=== PATIENT | male | born 1950 | race Caucasian/White ===

== ENCOUNTER 2021-06-24 12:21 | Outpatient (REF) | payer BC, SELFPAY ==
[2021-06-24 18:08] LABS: Estimated Average Glucose 128 mg/dL; Hemoglobin A1c % 6.1 %
[2021-06-24 18:43] LABS: Alanine Aminotransferase 14 U/L (0-40); Albumin Level 4.3 g/dL (3.5-5.0); Alkaline Phosphatase 60 U/L (39-117); Anion Gap 16 (12-20); Aspartate Amino Transferase 20 U/L (5-37); Bilirubin Total 0.8 mg/dL (0.0-1.0); Blood Urea Nitrogen 16 mg/dL (9-16); Carbon Dioxide 24 mmol/L (22-29); Chloride 103 mmol/L (96-108); Estimated Glomerular Filt Rate > 60; Glucose Random 92 mg/dL (60-115); Potassium 3.4 mmol/L (3.3-5.1); Sodium 140 mmol/L (135-145); Total Protein 6.6 g/dL (6.5-8.0)
[2021-06-24 19:04] LABS: Thyroid Stimulating Hormone 2.94 uIU/mL (0.32-4.0)
== END 2021-06-24 12:22 | disposition home or self-care (01) ==
LOC: HO.MANLDS 12:21
PROVIDERS: PCP Internal Medicine; Visit Provider Internal Medicine
DX: E03.9 Hypothyroidism, unspecified (principal); I10 Essential (primary) hypertension
CPT/HCPCS: 36415; 80053; 83036; 84443

== ENCOUNTER 2021-10-17 11:58 | Outpatient (REF) | payer BC, SELFPAY ==
[2021-10-17 14:29] LABS: Estimated Average Glucose 137 mg/dL; Hemoglobin A1c % 6.4 %
== END 2021-10-17 11:59 | disposition home or self-care (01) ==
LOC: HO.MANLDS 11:58
PROVIDERS: PCP Internal Medicine; Visit Provider Internal Medicine
DX: E11.9 Type 2 diabetes mellitus without complications (principal)
CPT/HCPCS: 36415; 83036

== ENCOUNTER 2022-01-30 13:50 | Outpatient (REF) | payer SELFPAY ==
[2022-01-30 18:21] LABS: Estimated Average Glucose 137 mg/dL; Hemoglobin A1c % 6.4 %
== END 2022-01-30 13:51 | disposition home or self-care (01) ==
LOC: HO.MANLDS 13:50
PROVIDERS: PCP Internal Medicine; Visit Provider Internal Medicine
DX: E11.9 Type 2 diabetes mellitus without complications (principal)
CPT/HCPCS: 36415; 83036

== ENCOUNTER 2022-05-29 10:46 | Outpatient (REF) | payer OTHER, SELFPAY ==
[2022-05-29 13:24] LABS: MANUAL DIFF FLAG NO
[2022-05-29 13:33] LABS: Basophils Absolute Auto 0.1 X10*3/uL (0.0-0.2); Basophils Percent Auto 1.2 % (0-2); Eosinophils Absolute Auto 0.3 X10*3/uL (0.0-0.4); Eosinophils Percent Auto 5.1 % (0-4); Hematocrit 44.3 % (42.0-52.0); Hemoglobin 15.3 g/dl (14.0-18.0); Imm Gran Abs Auto 0.01 X10*3/uL (0.00-0.03); Imm Gran Pct Auto 0.2 % (0.0-0.4); Lymphocytes Absolute Auto 1.5 X10*3/uL (1.2-4.9); Lymphocytes Percent Auto 25.5 % (20-40); Mean Corpuscular HGB Conc 34.5 g/dl (31.0-36.0); Mean Corpuscular Hemoglobin 29.7 pg (27.0-33.0); Mean Corpuscular Volume 85.9 fL (80.0-98.0); Mean Platelet Volume 9.3 fL (9.4-12.4); Monocytes Absolute Auto 0.5 X10*3/uL (0.1-1.2); Monocytes Percent Auto 8.1 % (2-11); Neutrophils Absolute Auto 3.6 x10*3/uL (2.0-8.3); Neutrophils Percent Auto 59.9 % (45-73); Platelet Count 239 X10*3/uL (160-400); Red Blood Count 5.16 X10*6/uL (4.60-5.80); Red Cell Distribution Width 11.9 % (11.0-16.0); White Blood Count 5.9 X10*3/uL (4.8-10.8)
[2022-05-29 13:40] LABS: Estimated Average Glucose 143 mg/dL; Hemoglobin A1c % 6.6 %
[2022-05-29 14:01] LABS: Alanine Aminotransferase 15 U/L (0-40); Alkaline Phosphatase 56 U/L (39-117); Anion Gap 11 (12-20); Aspartate Amino Transferase 18 U/L (5-37); Bilirubin Total 1.1 mg/dL (0.0-1.0); Blood Urea Nitrogen 15 mg/dL (9-16); Calcium 8.6 mg/dL (8.4-10.2); Carbon Dioxide 27 mmol/L (22-29); Chloride 103 mmol/L (96-108); Cholesterol 160 mg/dL; Estimated Glomerular Filt Rate > 60; Glucose Random 126 mg/dL (60-115); HDL Cholesterol 32 mg/dL; LDL Cholesterol Calculated 109 mg/dl; Potassium 3.4 mmol/L (3.3-5.1); Sodium 138 mmol/L (135-145); Triglycerides 96 mg/dL
[2022-05-29 14:23] LABS: Thyroid Stimulating Hormone 2.95 uIU/mL (0.32-4.0); Vitamin D 25-OH Total 21.4 ng/mL (>30)
[2022-05-30 08:05] LABS: ~HepC Num1 0.09 S/CO (0.00-0.79); ~Hepatitis C Antibody Nonreactive (Nonreactive)
== END 2022-05-29 10:47 | disposition home or self-care (01) ==
LOC: HO.MANLDS 10:46
PROVIDERS: Visit Provider Internal Medicine
DX: Z12.5 Encounter for screening for malignant neoplasm of prostate (principal); Z11.59 Encounter for screening for other viral diseases; E11.9 Type 2 diabetes mellitus without complications; I10 Essential (primary) hypertension
CPT/HCPCS: 36415; 80053; 80061; 82306; 83036; 84153; 84443; 85025; 86803

== ENCOUNTER 2022-10-09 10:39 | Outpatient (REF) | payer OTHER, SELFPAY ==
[2022-10-09 14:21] LABS: Estimated Average Glucose 154 mg/dL
== END 2022-10-09 10:40 | disposition home or self-care (01) ==
LOC: HO.MANLDS 10:39
PROVIDERS: Visit Provider Internal Medicine
DX: E11.9 Type 2 diabetes mellitus without complications (principal)
CPT/HCPCS: 36415; 83036

== ENCOUNTER 2023-02-13 11:16 | Outpatient (REF) | payer OTHER, SELFPAY ==
[2023-02-13 13:19] LABS: Estimated Average Glucose 151 mg/dL; Hemoglobin A1c % 6.9 %
== END 2023-02-13 11:17 | disposition home or self-care (01) ==
LOC: HO.MANLDS 11:16
PROVIDERS: Visit Provider Internal Medicine
DX: E11.9 Type 2 diabetes mellitus without complications (principal)
CPT/HCPCS: 36415; 83036

== ENCOUNTER 2023-06-25 10:52 | Outpatient (REF) | payer OTHER, SELFPAY ==
[2023-06-25 13:49] LABS: MANUAL DIFF FLAG NO
[2023-06-25 14:03] LABS: Basophils Absolute Auto 0.1 X10*3/uL (0.0-0.2); Basophils Percent Auto 1.6 % (0-2); Eosinophils Absolute Auto 0.1 X10*3/uL (0.0-0.4); Eosinophils Percent Auto 1.8 % (0-4); Hematocrit 49.2 % (42.0-52.0); Hemoglobin 16.7 g/dl (14.0-18.0); Imm Gran Abs Auto 0.02 X10*3/uL (0.00-0.03); Imm Gran Pct Auto 0.3 % (0.0-0.4); Lymphocytes Absolute Auto 1.7 X10*3/uL (1.2-4.9); Lymphocytes Percent Auto 27.6 % (20-40); Mean Corpuscular HGB Conc 33.9 g/dl (31.0-36.0); Mean Corpuscular Hemoglobin 29.9 pg (27.0-33.0); Mean Corpuscular Volume 88.2 fL (80.0-98.0); Mean Platelet Volume 9.5 fL (9.4-12.4); Monocytes Absolute Auto 0.5 X10*3/uL (0.1-1.2); Monocytes Percent Auto 8.1 % (2-11); Neutrophils Absolute Auto 3.8 x10*3/uL (2.0-8.3); Neutrophils Percent Auto 60.6 % (45-73); Platelet Count 265 X10*3/uL (160-400); Red Blood Count 5.58 X10*6/uL (4.60-5.80); Red Cell Distribution Width 11.9 % (11.0-16.0); White Blood Count 6.3 X10*3/uL (4.8-10.8)
[2023-06-25 14:51] LABS: Alanine Aminotransferase 16 U/L (0-40); Albumin Level 3.9 g/dL (3.5-5.0); Alkaline Phosphatase 54 U/L (39-117); Anion Gap 11 (12-20); Aspartate Amino Transferase 18 U/L (5-37); Blood Urea Nitrogen 13 mg/dL (9-16); Calcium 9.2 mg/dL (8.4-10.2); Carbon Dioxide 28 mmol/L (22-29); Chloride 104 mmol/L (96-108); Cholesterol 150 mg/dL; Estimated Glomerular Filt Rate > 60; Glucose Random 137 mg/dL (60-115); HDL Cholesterol 31 mg/dL; LDL Cholesterol Calculated 101 mg/dl; Potassium 3.7 mmol/L (3.3-5.1); Sodium 139 mmol/L (135-145); Total Protein 6.5 g/dL (6.5-8.0); Triglycerides 93 mg/dL
[2023-06-25 15:12] LABS: Thyroid Stimulating Hormone 3.61 uIU/mL (0.32-4.0)
[2023-06-25 15:16] LABS: Estimated Average Glucose 154 mg/dL
[2023-06-25 15:19] LABS: Prostate Specific Antigen 1.39 ng/mL (<0.05-4.0)
== END 2023-06-25 10:53 | disposition home or self-care (01) ==
LOC: HO.MANLDS 10:52
PROVIDERS: Visit Provider Internal Medicine
DX: Z12.5 Encounter for screening for malignant neoplasm of prostate (principal); I10 Essential (primary) hypertension; E03.9 Hypothyroidism, unspecified; E11.9 Type 2 diabetes mellitus without complications
CPT/HCPCS: 36415; 80053; 80061; 83036; 84153; 84443; 85025

== ENCOUNTER 2023-10-30 09:47 | Outpatient (REF) | payer OTHER, SELFPAY ==
[2023-10-30 14:08] LABS: Estimated Average Glucose 160 mg/dL; Hemoglobin A1c % 7.2 % (<6.0)
== END 2023-10-30 09:48 | disposition home or self-care (01) ==
LOC: HO.MANLDS 09:47
PROVIDERS: Visit Provider Internal Medicine
DX: E11.9 Type 2 diabetes mellitus without complications (principal)
CPT/HCPCS: 36415; 83036

== ENCOUNTER 2024-02-12 10:40 | Outpatient (REF) | payer OTHER, SELFPAY ==
[2024-02-12 13:31] LABS: MANUAL DIFF FLAG NO
[2024-02-12 13:40] LABS: Basophils Absolute Auto 0.1 X10*3/uL (0.0-0.2); Eosinophils Absolute Auto 0.1 X10*3/uL (0.0-0.4); Hematocrit 42.3 % (42.0-52.0); Hemoglobin 14.9 g/dl (14.0-18.0); Imm Gran Abs Auto 0.02 X10*3/uL (0.00-0.03); Imm Gran Pct Auto 0.4 % (0.0-0.4); Lymphocytes Absolute Auto 1.5 X10*3/uL (1.2-4.9); Lymphocytes Percent Auto 29.3 % (20-40); Mean Corpuscular HGB Conc 35.2 g/dl (31.0-36.0); Mean Corpuscular Hemoglobin 29.9 pg (27.0-33.0); Mean Corpuscular Volume 84.8 fL (80.0-98.0); Mean Platelet Volume 9.4 fL (9.4-12.4); Monocytes Absolute Auto 0.4 X10*3/uL (0.1-1.2); Monocytes Percent Auto 8.5 % (2-11); Neutrophils Absolute Auto 3.1 x10*3/uL (2.0-8.3); Neutrophils Percent Auto 59.8 % (45-73); Platelet Count 252 X10*3/uL (160-400); Red Blood Count 4.99 X10*6/uL (4.60-5.80); Red Cell Distribution Width 12.3 % (11.0-16.0); White Blood Count 5.2 X10*3/uL (4.8-10.8)
[2024-02-12 14:11] LABS: Alanine Aminotransferase 29 U/L (0-40); Albumin Level 3.8 g/dL (3.5-5.0); Alkaline Phosphatase 51 U/L (39-117); Anion Gap 11 (12-20); Aspartate Amino Transferase 26 U/L (5-37); Bilirubin Total 0.6 mg/dL (0.0-1.0); Blood Urea Nitrogen 16 mg/dL (9-16); Calcium 8.9 mg/dL (8.4-10.2); Carbon Dioxide 31 mmol/L (22-29); Chloride 102 mmol/L (96-108); Cholesterol 108 mg/dL (<200); Estimated Glomerular Filt Rate > 60; Glucose Random 121 mg/dL (60-115); HDL Cholesterol 29 mg/dL (>40); LDL Cholesterol Calculated 64 mg/dL (<100); Potassium 3.3 mmol/L (3.3-5.1); Sodium 141 mmol/L (135-145); Triglycerides 76 mg/dL (<150)
[2024-02-12 14:27] LABS: Prostate Specific Antigen 1.86 ng/mL (<0.05-4.0)
[2024-02-12 14:28] LABS: Free T4 (Free Thyroxine) 1.21 ng/dL (0.71-1.85); Thyroid Stimulating Hormone 3.06 uIU/mL (0.32-4.0); Vitamin D 25-OH Total 20.6 ng/mL (>30)
== END 2024-02-12 10:41 | disposition home or self-care (01) ==
LOC: HO.MANLDS 10:40
PROVIDERS: Visit Provider Internal Medicine
DX: Z12.5 Encounter for screening for malignant neoplasm of prostate (principal); I10 Essential (primary) hypertension; E03.9 Hypothyroidism, unspecified; E55.9 Vitamin D deficiency, unspecified
CPT/HCPCS: 36415; 80053; 80061; 82306; 84153; 84439; 84443; 85025

== ENCOUNTER 2024-03-07 15:27 | Outpatient (REF) | payer OTHER, SELFPAY ==
[2024-03-07 17:57] LABS: Estimated Average Glucose 137 mg/dL; Hemoglobin A1c % 6.4 % (<6.0)
== END 2024-03-07 15:28 | disposition home or self-care (01) ==
LOC: HO.MANLDS 15:27
PROVIDERS: Visit Provider Internal Medicine
DX: E11.9 Type 2 diabetes mellitus without complications (principal)
CPT/HCPCS: 36415; 83036

== ENCOUNTER 2024-09-08 09:44 | Outpatient (REF) | payer OTHER, SELFPAY ==
[2024-09-08 13:40] LABS: Estimated Average Glucose 154 mg/dL; Hemoglobin A1C 211.3082 umol/L; Total Hemoglobin (HGBA1C) 3975.6024 umol/L
== END 2024-09-08 09:45 | disposition home or self-care (01) ==
LOC: HO.MANLDS 09:44
PROVIDERS: Visit Provider Internal Medicine
DX: E11.9 Type 2 diabetes mellitus without complications (principal)
CPT/HCPCS: 36415; 83036

== ENCOUNTER 2025-08-07 09:59 | Outpatient (REF) | payer OTHER, SELFPAY ==
--- OUTSIDE RECORDS SUMMARY | 2025-08-07 10:33 | XMS_ITS | Encounter Summary ---
Author Organization [facility] Address [address] [place] [address] Phone Care Team Providers Care Protocol Manager Name Role Phone Taj Andrews DO Primary Care Provider [phone] Encounter Details Date Type Department Care Team (Late st Contact Info) Description 10/09/2022 Transcribe Orders Virtual Department [address] [place] [address] Taj Andrews DO [address] [facility] [place] [address] [email or web address] Left arm pain (Primary Dx) Social History Tobacco Use Types Packs/Day Years Used Date Smoking Tobacco: Never Assessed Sex and Gender Information Value Date Recorded Sex Assigned at Not on file Legal Sex Male 11:14 AM EST Gender Identity Not on file Sexual Orientation Not on file documented as of this encounter Plan of Treatment Not on file documented as of this encounter Results * XR Humerus (Left) (10/11/2022 3:16 PM EST) Anatomical Region Laterality Modality Arm Left Computed Radiogr aphy 10/13/2022 4:14 PM EST Impressions 10/14/2022 5:28 PM EST Degenerative changes. No acute osseous abnormality. Narrative 10/14/2022 5:28 PM EST XR SHOULDER 2 OR MORE VIEWS (LEFT), XR HUMERUS (LEFT) COMPARISON: FINDINGS: No fracture. Osseous alignment is normal. Mild degenerative changes of the acromioclavicular and glenohumeral joints. Common flexor and common extensor enthesopathy in the distal humerus. Procedure Note Crispin Pendleton MD - 10/14/2022 XR SHOULDER 2 OR MORE VIEWS (LEFT), XR HUMERUS (LEFT) COMPARISON: FINDINGS: No fracture. Osseous alignment is normal. Mild degenerative changes of theacromioclavicular and glenohumeral joints. Common flexor and commonextensor enthesopathy in the distal humerus. IMPRESSION: Degenerative changes. No acute osseous abnormality. us Taj A Bigda DO IMG XR UPPER EXTREMITY Final Res ult * XR SHOULDER 2 VIEWS (LEFT) (10/11/2022 3:15 PM EST) Anatomical Region Laterality Modality Shoulder Left Computed Radiogr aphy 10/13/2022 4:14 PM EST Impressions 10/14/2022 5:28 PM EST Degenerative changes. No acute osseous abnormality. Narrative 10/14/2022 5:28 PM EST XR SHOULDER 2 OR MORE VIEWS (LEFT), XR HUMERUS (LEFT) COMPARISON: FINDINGS: No fracture. Osseous alignment is normal. Mild degenerative changes of the acromioclavicular and glenohumeral joints. Common flexor and common extensor enthesopathy in the distal humerus. Procedure Note Crispin Pendleton MD - 10/14/2022 XR SHOULDER 2 OR MORE VIEWS (LEFT), XR HUMERUS (LEFT) COMPARISON: FINDINGS: No fracture. Osseous alignment is normal. Mild degenerative changes of theacromioclavicular and glenohumeral joints. Common flexor and commonextensor enthesopathy in the distal humerus. IMPRESSION: Degenerative changes. No acute osseous abnormality. us Taj A Bigda DO IMG XR UPPER EXTREMITY Final Res ult documented in this encounter Visit Diagnoses Diagnosis Left arm pain- Primary Pain in soft tissues of limb Left arm pain Pain in soft tissues of limb Left arm pain Pain in soft tissues of limb documented in this encounter Care Teams Protocol Manager Relationship Specialty Start Date End Date BobTaj orr [email or web address] PCP - General Internal Medicine 10/11/22 documented as of this encounter Additional Source Comments The information contained in this document represents components of the legal health record. It is not the complete legal health record.[facility]
--- OUTSIDE RECORDS SUMMARY | 2025-08-07 10:33 | XMS_ITS | Clinical Summary ---
Author Organization [facility] Address [address] [place], [place] [id number] Phone Care Team Providers Care It Security Administrator Name Role Phone Taj Andrews DO Primary Care Provider [phone] Allergies Active Allergy Reactions Criticality Noted Date Comments Diatrizoate Meglumine Rash Low 12/18/2019 Penicillins Rash Low 10/14/2013 Medications levothyroxine (SYNTHROID, LEVOTHROID) 50 MCG tablet Take 1 tablet by mouth daily. 02/08/2022 Active losartan-hydroCH LOROthiazide (HYZAAR) 100-25 mg per tablet Take 1 tablet by mouth daily. 12/01/2022 Active tadalafiL (CIALIS, ADCIRCA) 20 MG tablet Take 1 tablet by mouth every morning. 04/09/2023 Active Active Problems Problem Noted Date Diagnosed Date Controlled type 2 diabetes m ellitus without complication, without long-term current use of insulin 10/05/2020 05/18/2023 Hypertension goal BP (blood pressure) < 140/90 1 12/14/2012 05/18/2023 Hypothyroidism 10/14/2013 05/18/2023 Immunizations Immunization Administration Dates Next Due INFLUENZA, SPLIT VIRUS, TRIVALENT PF 08/13/2012, 10/31/2011,10/09/2007 INFLUENZA, SPLIT VIRUS, TRIV ALENT W/ PRESERVATIVE IM 10/14/2013 Influenza Quadrivalent Preservative Free IM 06/2016 Influenza Trivalent Adjuvant ed Preservative free IM 09/08/2019,10/18/2018,11/13/2017 Pneumococcal conjugate PCV13 06/19/2018 Pneumococcal polysaccharide PPSV23 12/18/2019 Tdap 12/18/2019,07/19/2010 Social History Tobacco Use Types Packs/Day Years Used Date Smoking Tobacco: Never Smokeless Tobacco: Never Tobacco Cessation:Counseling Given: Not Answered Alcohol Use Standard Drinks/Week Comments Never 0 (1 standard drink = 0.6 oz pur e alcohol) Education Answer Date Recorded Are you interested in more education? Not on tammy e 03/17/2023 Are you concerned about learning? Not on file 03/17/2023 No 03/17/2023 No 03/17/2023 Digital Access Answer Date Recorded No 04/17/2023 No 04/17/2023 Reliable internet access at home? Not on file 04/17/2023 Device with a working camera? Not on file Sex and Gender Information Value Date Recorded Sex Assigned at Not on file Legal Sex Male 11:14 AM EST Gender Identity Not on file Sexual Orientation Not on file Last Filed Vital Signs Vital Sign Reading Time Taken Comments Blood Pressure 111/77 06/23/2024 9:53 AM EDT Pulse 70 06/23/2024 9:53 AM EDT Temperature 36.7 C (98.1 F) 06/23/2024 9:53 AM EDT Respiratory Rate 16 06/23/2024 9:53 AM EDT Oxygen Saturation 98% 06/23/2024 9:53 AM EDT Inhaled Oxygen Concentration - - Weight 111.1 kg (245 lb) 06/23/2024 9:53 AM EDT Height 180.3 cm (5' 11 ) 06/23/2024 9:53 AM EDT Body Mass Index 34.17 06/23/2024 9:53 AM EDT Plan of Treatment Health Maintenance Due Date Last Done Comments CREATININE LEVEL 1952 HEMOGLOBIN A1C 1952 POTASSIUM LEVEL 1952 DEPRESSION SCREENING 1964 COLOGUARD 1997 COLONOSCOPY 1997 FIT TEST 1997 SIGMOIDOSCOPY 1997 VIRTUAL COLONOSCOPY 1997 ZOSTER VACCINES (1 of 2) 2002 TSH LEVEL 10/04/2021 10/04/2020, 11/21, 11/07/2018 LIPID PANEL 02/23/2022 02/23/2021 COLORECTAL CANCER SCREENING 03/07/2022 FOBT 03/07/2022 03/07/2021, 12/25/2019 DIABETIC EYE EXAM 05/18/2023 BLOOD PRESSURE 12/24/2024 06/23/2024 INFLUENZA VACCINE (#1) 2025 9, 10/18/2018, 11/13/2017, Additional history exists COVID-19 VACCINE ( - 2023- season) 2025 RSV VACCINE (1 - 1-dose 75+ series) 2027 Adult Td,Tdap Booster 12/18/2029 12/18/2019, 010 HEPATITIS C SCREENING Completed 12/18/2019 PNEUMOCOCCAL VACCINES (50+ years) Completed 12/18/2019, 06/19/2018 SMOKING STATUS SCREENING (Once After 26 Yrs) Completed 06/23/2024 HEPATITIS A VACCINES Aged Out No long er eligible based on patient's age to complete this topic HIB VACCINES Aged Out No longer eligi ble based on patient's age to complete this topic MENINGOCOCCAL VACCINES (ACWY) Aged Out No longer eligible based on patient's age to complete this topic MENINGOCOCCAL VACCINES (B) Aged Out N o longer eligible based on patient's age to complete this topic Medical Devices Not on file Insurance POS Member Subscriber Plan / Payer (Ef fective 2023-Present) Name:Gaurav Silverio Relation to Subscriber:Spouse Name:CANDACE SILVERIO Date of :1952 (Home) [address]: [address] [place] [address] Payer ID:[id number] (NAIC) Type:POS Address: [facility] [id number] [place] [id number] [employer] POS POS POS POS POS Care Teams It Security Administrator Relationship Specialty Start Date End Date Taj Andrews DO [email or web address] PCP - General Internal Medicine 10/11/22 Additional Source Comments The information contained in this document represents components of the legal health record. It is not the complete legal health record.[facility]
--- OUTSIDE RECORDS SUMMARY | 2025-08-07 10:33 | XMS_ITS | Encounter Summary ---
Author Organization [facility] Address [address] [facility] [address] [place] [address] Phone Care Team Providers Care Contact Lens Manufacturer Name Role Phone Taj Andrews DO Primary Care Provider [phone] Encounter Details Date Type Department Care Team (Late st Contact Info) Description 09/10/2024 Transcribe Orders Virtual Department [address] [place] [address] Taj Andrews DO [address] [facility] [place] [address] [place] [address] [email or web address] Muscle weakness (generalized) (Primary Dx) Social History Tobacco Use Types Packs/Day Years Used Date Smoking Tobacco: Never Smokeless Tobacco: Never Alcohol Use Standard Drinks/Week Comments Never 0 [...] as of this encounter Results * XR LUMBOSACRAL SPINE 2-3 VIEWS (10/17/2024 10:24 AM EST) Anatomical Region Laterality Modality L-spine Computed Radiogr aphy 10/17/2024 11:1 5 AM EST Impressions 10/17/2024 11:17 AM EST No evidence of acute fracture or malalignment. Degenerative change as described above. Narrative 10/17/2024 11:17 AM EST XR LUMBOSACRAL SPINE 2-3 VIEWS 10/17/2024 10:07 AM Referring clinician's provided indication for this examination in Epic: Outside Radiology Order; Muscle weakness (generalized) COMPARISON: None FINDINGS: There is no evidence of acute fracture, subluxation, or dislocation. Vertebral body height and sagittal alignment are preserved. There is multilevel anterior degenerative endplate marginal osteophytosis, most notable at L5-S1. There is mild loss of disc space height at L4-5 and L5-S1. There is degenerative change of the lower lumbar facet joints. Procedure Note Fatoumata Rangel MD - 10/17/2024 XR LUMBOSACRAL SPINE 2-3 VIEWS 10/17/2024 10:07 AM Referring clinician's provided indication for this examination in Epic:Outside Radiology Order; Muscle weakness (generalized) COMPARISON: None FINDINGS: There is no evidence of acute fracture, subluxation, or dislocation.Vertebral body height and sagittal alignment are preserved. There ismultilevel anterior degenerative endplate marginal osteophytosis, mostnotable at L5-S1. There is mild loss of disc space height at L4-5 andL5-S1. There is degenerative change of the lower lumbar facet joints. IMPRESSION: No evidence of acute fracture or malalignment. Degenerative change asdescribed above. us Taj Andrews DO IMG XR SPINE Final Result documented in this encounter Visit Diagnoses Diagnosis Muscle weakness (generalized)- Primary Muscle weakness (generalized) documented in this encounter Care Teams Contact Lens Manufacturer Relationship Specialty Start Date End Date Taj Andrews DO PCP - General Internal Medicine 10/11/22 documented as of this encounter Additional Source Comments The information contained in this document represents components of the legal health record. It is not the complete legal health record.[facility]
--- OUTSIDE RECORDS SUMMARY | 2025-08-07 10:33 | XMS_ITS | Encounter Summary ---
Author Organization [facility] Address [address] [facility] [address] [place] [address] Phone Care Team Providers Care Food Analyst Name Role Phone Taj Andrews DO Primary Care Provider [phone] Encounter Details Date Type Department Care Team (Late st Contact Info) Description 11/25/2024 Transcribe Orders Virtual Department [address] [place] [address] Taj Andrews DO [address] [facility] [place] [address] [place] [address] Right hip pain (Primary Dx); Left hip pain Social History Tobacco Use Types Packs/Day Years [...] as of this encounter Results * XR HIPS 2+ VW EA BILAT PLUS PELVIS (12/22/2024 10:35 AM EST) Anatomical Region Laterality Modality Hip, Pelvis Computed Radiogr aphy 12/22/2024 12:4 2 PM EST Impressions 12/22/2024 12:44 PM EST Mild degenerative changes at the hips. Narrative 12/22/2024 12:44 PM EST XR HIPS 2+ VW EA BILAT PLUS PELVIS Referring clinician's provided indication for this examination in Epic: Outside Radiology Order; Other Indication (Please use free text); Pain; BILATERAL HIP JOINT PAIN COMPARISON: None FINDINGS: Pelvis: Lower lumbar spine degenerative changes. Mild degenerative changes at both sacroiliac joints and pubic symphysis. No displaced fracture. Left Hip: No displaced fracture. Mild degenerative changes. Right Hip: No displaced fracture. Mild degenerative changes. Procedure Note Anthony Posey MD - 12/22/2024 XR HIPS 2+ VW EA BILAT PLUS PELVIS Referring clinician's provided indication for this examination in Epic:Outside Radiology Order; Other Indication (Please use free text); Pain;BILATERAL HIP JOINT PAIN COMPARISON: None FINDINGS: Pelvis: Lower lumbar spine degenerative changes. Mild degenerative changesat both sacroiliac joints and pubic symphysis. No displaced fracture. Left Hip: No displaced fracture. Mild degenerative changes. Right Hip: No displaced fracture. Mild degenerative changes. IMPRESSION: Mild degenerative changes at the hips. Taj Andrews DO IMG XR PELVIS Final Result documented in this encounter Visit Diagnoses Diagnosis Right hip pain- Primary Pain in joint, pelvic region and thigh Left hip pain Pain in joint, pelvic region and thigh Right hip pain Pain in joint, pelvic region and thigh Left hip pain Pain in joint, pelvic region and thigh documented in this encounter Care Teams Food Analyst Relationship Specialty Start Date End Date Taj Andrews DO PCP - General Internal Medicine 10/11/22 documented as of this encounter Additional Source Comments The information contained in this document represents components of the legal health record. It is not the complete legal health record.[facility]
[2025-08-07 13:14] LABS: MANUAL DIFF FLAG NO
[2025-08-07 13:46] LABS: Hematocrit 45.4 % (42.0-52.0); Hemoglobin 16.3 g/dl (14.0-18.0); Imm Gran Abs Auto 0.03 X10*3/uL (0.00-0.03); Imm Gran Pct Auto 0.4 % (0.0-0.4); Lymphocytes Absolute Auto 1.9 X10*3/uL (1.2-4.9); Mean Corpuscular HGB Conc 35.9 g/dl (31.0-36.0); Mean Corpuscular Hemoglobin 30.4 pg (27.0-33.0); Mean Corpuscular Volume 84.5 fL (80.0-98.0); NRBC Abs Auto 0.000 X10*3/uL (0.0-0.012); NRBC Pct Auto 0.0 /100WBC (0.0-0.2); Platelet Count 249 X10*3/uL (160-400); Red Blood Count 5.37 X10*6/uL (4.60-5.80); White Blood Count 7.2 X10*3/uL (4.8-10.8)
[2025-08-07 13:54] LABS: Hemoglobin A1C 279.1516 umol/L; Total Hemoglobin (HGBA1C) 4260.5149 umol/L
[2025-08-07 14:04] LABS: Alanine Aminotransferase 17 U/L (0-40); Albumin Level 4.2 g/dL (3.5-5.0); Alkaline Phosphatase 54 U/L (39-117); Anion Gap 9 (12-20); Aspartate Amino Transferase 26 U/L (5-37); Blood Urea Nitrogen 12 mg/dL (9-16); Calcium 8.9 mg/dL (8.4-10.2); Carbon Dioxide 28 mmol/L (22-29); Chloride 105 mmol/L (96-108); Estimated Glomerular Filt Rate > 60; Potassium 3.3 mmol/L (3.3-5.1); Sodium 139 mmol/L (135-145); Total Protein 6.3 g/dL (6.5-8.0)
[2025-08-07 14:15] LABS: Prostate Specific Antigen 1.86 ng/mL (<0.05-4.0)
[2025-08-07 14:35] LABS: Free T4 (Free Thyroxine) 1.11 ng/dL (0.71-1.85); Thyroid Stimulating Hormone 3.81 uIU/mL (0.32-4.0)
== END 2025-08-07 10:00 | disposition home or self-care (01) ==
LOC: HO.MANLDS 09:59
PROVIDERS: Visit Provider Internal Medicine
DX: Z12.5 Encounter for screening for malignant neoplasm of prostate (principal); E11.9 Type 2 diabetes mellitus without complications; E03.9 Hypothyroidism, unspecified
CPT/HCPCS: 36415; 80053; 83036; 84153; 84439; 84443; 85025

== ENCOUNTER 2025-11-06 09:20 | Outpatient (REF) | payer OTHER, SELFPAY ==
--- OUTSIDE RECORDS SUMMARY | 2004-03-08 03:30 | XMS_ITS | Continuity of Care Document ---
Author Organization [facility] Address [address] [address] [place] [address] Phone Care Team Providers Care Svp Group Director Name Role Phone Unavailable Unavailable Unavailable Advance Directives Directive Yes / No Effective Date File Name No Information Encounters Encounter Description Practice Location Reason(s) For Visit Diagnoses Date Provider Providers Copied on Encounter [facility], [address] [address], [place], [place], [id number], [place] tel:[phone] [facility] No Information 2 0-200 4 No Information Referring Provider: Tommy Zhang MD, [address], [address], [place], [address]. tel:[phone] Family History Family Member Type Diagnosis Age At Onset No Information Payers Payer name Insurance type Covered democrat ID Authoriza tion(s) [facility] CI [id number] Social History Type Description Quantity Date Captured Comments Sex Male Smoking Status No Information Chief Complaint And Reason For Visit No Information Reason For Referral Reason For Referral No Information History Of Present Illness Encounter Date Complaint History Of Prese nt Illness No Information Functional Status Date Functional Assessmen t No Information Instructions Date Instruction Additional Infor mation No Information Assessments Type Assessment Date No Information Patient Care Teams Name Effective Dates (start - stop) Status Members No Information
--- OUTSIDE RECORDS SUMMARY | 2025-11-06 09:58 | XMS_ITS | Encounter Summary ---
Author Organization [facility] Address [address] [place] [address] Phone Care Team Providers Care System Developer Associate Manager Name Role Phone Taj Andrews DO Primary Care Provider [phone] Encounter Details Date Type Department Care Team (Late st Contact Info) Description 10/09/2022 Transcribe Orders Virtual Department [address] [place] [address] Taj Andrews DO [address] [place] [address] [email or web address] Left arm pain (Primary Dx) Social History [...] limb documented in this encounter Care Teams System Developer Associate Manager Relationship Specialty Start Date End Date BobTaj orr [email or web address] PCP - General Internal Medicine 10/11/22 documented as of this encounter Additional Source Comments The information contained in this document represents components of the legal health record. It is not the complete legal health record.[facility]
--- OUTSIDE RECORDS SUMMARY | 2025-11-06 09:59 | XMS_ITS | Continuity of Care Document ---
Author Organization [facility], [facility] Address [address] [facility] [address] [place] [address] Assessment No assessment recorded. Plan of Treatment Reminders Order Date Submit Date Provider Last Modified By Organization Details Last Modified Time Details Appointments MEDICARE ANNUAL [facility] 2024 09:45A M DR HUGHES Not available Not available Not available Lab None recorded. Referral None recorded. Procedures None recorded. Surgeries None recorded. Imaging None recorded. Medication Orders None recorded. Patient TargetsNo targets recorded. Patient InstructionsNo instructions recorded. Reason for Referral None Reported. Problems Name Problem SNOMED Code Status Onset Date Resolution Date Notes Provider Name and Address Organization Details Recorded Time Type 2 diabetes mellitus 33006864 Active 2020 Not Available [facility] 3 08:41:15 Hypertens marta disorder 51641580 Active 2020 Not Available [facility] 3 08:41:14 Hypothyro idism 13477469 Active 2020 Not Available [facility] 3 08:41:14 Benign prostatic hyperplas ia 337835431 Active 2020 Not Available [facility] 3 08:41:14 Actinic keratosis 120780512 Active 2020 Not Available [facility] 3 08:41:14 Primary erectile dysfuncti on 169054453 Active 2021 Not Available [facility] 3 08:41:15 Vitamin D deficienc y 39263138 Active 2021 Not Available [facility] 3 08:41:14 Pain in left arm 332058549 Active 2021 Not Available [facility] 3 08:41:14 Tympanosc lerosis involving tympanic membrane only 01796170 Active 2022 Not Available [facility] 3 08:41:14 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 Active 2023 Taj Rojaskirby, DO [address] [place] [address], [phone], [facility] 4 14:55:16 Weakness of bilateral lower limb Active 2023 Taj Hughes, DO [address] [place] [address], [phone], [facility] 4 14:55:34 Pain of bilateral hip joints 479820074940 99499 Active 2024 Taj Hughes, DO [address] [place] [address], [phone], [facility] 5 23:40:25 Nocturia due to benign prostatic hypertrop hy 074524543456 1 Active 2024 Taj Hughes, DO [address] [place] [address], [phone], [facility] 5 09:45:55 Problem Notes None recorded. Medical Equipment None Reported. Allergies Allergen ID Allergen Name Allergen Category Reaction Reaction Severity Criticality Documentation Date Start Date Code Code System Note Provider Name and Address Organization Details Recorded Time 15576 diatrizoa te meglumine medicatio n rash Not available low 11/06/20252019 3320 RxNorm Not Available [facility] [employer] - prod 5 04:21:58 18877 Product containin g penicilli n (product) medicatio n rash Not available low 11/06/20252012 52480 8001 SNOMED Not Available [facility] [employer] - prod 5 04:21:58 80828 Penicilli n Not available Not available Not available Not available 11/06/2025 42160 RxNorm Penic illin Not Available [employer] - prod 5 04:22:11 4658 penicilli n V Not available rash Not available Not available 06/24/2021 7984 RxNorm Birgit shrestha [facility] 11:23:53 Medications Name Sig Start Date Stop Date Status Note LastModified by Organization Details LastModified Time losartan 50 mg tablet Take 1 tablet every day by oral route for 90 days. 10/17 completed Not Available Not Available Not Available ketorolac 0.5 % eye drops PLACE 1 DROP IN LEFT EYE THREE TIMES A DAY FOR THREE WEEKS FOLLOWING CATARACT SURGERY active Not Available Not Available No t Available losartan 100 mg-hydrochl orothiazide 25 mg tablet TAKE 1 TABLET BY MOUTH EVERY DAY active Not Available Not Available No t Available ofloxacin 0.3 % ear drops INSTILL 5 DROPS INTO EACH EAR TWICE A DAY FOR 10 DAYS 09/10 completed Not Available Not Available Not Available tamsulosin 0.4 mg capsule TAKE 1 CAPSULE BY MOUTH EVERY DAY active Not Available Not Available No t Available levothyroxi ne 50 mcg tablet TAKE 1 TABLET BY MOUTH EVERY DAY active Not Available Not Available No t Available hydrochloro thiazide 25 mg tablet TAKE 1 TABLET BY MOUTH EVERY DAY 10/09 completed Not Available Not Available Not Available cefdinir 300 mg capsule TAKE 1 CAP BY MOUTH 2 TIMES A DAY FOR 10 DAYS. TAKE A PROBIOTIC 2 HOURS AFTER EACH DOSE 09/10 completed Not Available Not Available Not Available losartan 100 mg tablet TAKE 1 TABLET BY MOUTH EVERY DAY 10/09 completed Not Available Not Available Not Available ciprofloxac in 0.3 %-dexametha sone 0.1 % ear drops,suspe nsion INSTILL 4 DROPS INTO AFFECTED EAR(S) TWICE A DAY FOR 14 DAYS 09/10 completed Not Available Not Available Not Available rosuvastati n 5 mg tablet Take 1 tablet every day by oral route for 30 days. 09/10 completed Not Available Not Available Not Available tadalafil 20 mg tablet TAKE 1 TABLET BY MOUTH EVERY DAY NEEDED active Not Available Not Available No t Available Vitals Date Recorded Body height Body mass index (BMI) Body weight Oxygen saturation Heart rate Systolic And Diastolic Provider Name and Address Organization Details Last Updated DateTime 5 180.34 cm 34.6 kg/m2 690078. 91 g 97 % 77 /min 122/78 mm[Hg] RIGO ARTI [facility] 10:02:10 Social History Question Answer Notes LastModified by Organizat ion Details LastModified Time Tobacco Smoking Status Never Smoker [facility] 06/24/2021 11:25:33 What Is Your Level Of Caffeine Consumption? Moderate Information not available 06/24/2021 What Type Of Diet Are You Following? REGULAR Information not available 06/24/2021 What Was The Date Of Your Most Recent Tobacco Screening? 11/06/2025 [email or web address] Information not available 11/06/2025 Sex: Male Functional Status Question Answer Note LastModified by Organizat ion Details LastModified Time Do you use any illicit or recreational drugs? No [email or web address] Information not available 11/21/2023 Do you or have you ever used any other forms of tobacco or nicotine? No [email or web address] Information not available 11/21/2023 What is your level of alcohol consumption? Occasional Information not available 06/24/2021 What is your exercise level? Moderate Information not available 06/24/2021 Mental Status None recorded. Family History Relationship Description Onset Age of this Age Resolved Age Notes LastModified by Organization Details LastModified Time Paternal Grandmother Arthritis [email or web address] Not available 04/2021 11:26:09 Father Arthritis jvanasse Not availabl e 06/24/2021 11:26:09 Father Hypertensive disorder jvanasse Not available 2020 11:26:17 Father Malignant neoplastic disease [email or web address] Not available 2023 14:35:06 Father Diabetes mellitus [email or web address] Not available 2020 11:26:53 Sister Arthritis jvanasse Not availabl e 06/24/2021 11:26:09 Mother Malignant neoplastic disease [email or web address] Not available 2023 14:35:06 Mother Diabetes mellitus [email or web address] Not available 2020 11:26:56 Brother Malignant neoplastic disease hrubner Not available 2023 14:35:06 Maternal Grandmother Cerebrovascu lar accident jvanasse Not available 04/2021 11:27:17 Maternal Grandmother Diabetes mellitus [email or web address] Not available 2020 11:27:32 Medical History No medical history recorded. Immunizations Vaccine Type Date Status Note Provider Nam e and Address Organization Details Recorded Time Tdap 0 completed Birgit shrestha, [facility] 06/22/2021 08:24:58 Tdap 0 completed Birgit shrestha, [facility] 06/22/2021 08:25:02 Pneumococcal conjugate PCV 13 8 completed Kati Gencarelle [facility] 11/21/2023 08:18:00 pneumococcal polysaccharide PPV23 0 completed Kati Gencarelle [facility] 11/21/2023 08:18:00 COVID-19, mRNA, LNP-S, PF, 30 mcg/0.3 mL dose 1 completed Kati Gencarelle [facility] 11/21/2023 08:18:00 COVID-19, mRNA, LNP-S, PF, 30 mcg/0.3 mL dose 1 completed Kati Gencarelle [facility] 11/21/2023 08:18:00 Influenza, split virus, quadrivalent, preservative 1 completed Kati Gencarelle [facility] 11/21/2023 08:18:00 COVID-19, mRNA, LNP-S, PF, 30 mcg/0.3 mL dose 1 [facility] 08:18:00 COVID-19, mRNA, LNP-S, PF, 30 mcg/0.3 mL dose 2 completed Kati Gencarelle [facility] 11/21/2023 08:18:00 Influenza, split virus, quadrivalent, preservative 2 completed Kati Gencarelle [facility] 11/21/2023 08:18:00 Past Encounters Encounter ID Performer Location Encounter Start Date Encounter Closed Date Diagnosis/Indication Diagnosis SNOMED-CT Code Diagnosis ICD10 Code Diagnosis IMO Codes Diagnosis Note [id number] DO [facility] [address] [facility] [address],[place] [address] 09/18/2025 09:51:36 09/18/2025 11:06:12 Pre-surgery evaluation 384896216 Z01.818 Per the ACC cardiac risk stratifica tion (revised) this patient is deemded a low risk for the proposed cataract OS surgery . He understand s to take his usual medication sprior to surgery (except the tamsulosin ) . Depression screening 171 431528 Z13.31 neg Health Concerns Section Related Observation LastModified by Organization Detai ls LastModified Time None Recorded Concern Status LastModified by Organization Details LastModified Time None Recorded Payers Encounter Date Sequence Insurance Name Policy Number Policy Connor Covered Member ID Connor Member ID Guarantor Name 09/18/2025 1 [facility] [id number] [facility] Listug [id number] [facility] Notes Date Note Type Note Provider Name and Address Organization Details Recorded Time 5 text/htm l Care Management - HypertensionReported by PatientHPIFor self care, patient reportsnot under emotional stress. For severity, patient reportssymptoms are improvinganddoes not interfere with daily activities. For associated symptoms, patient reportsno dizziness,no lightheadedness,no chest pain,no shortness of breath,no palpitations,no edema,no calf muscle cramps,no blurred vision,no confusion,no headaches, andno fatigue. Pre-OpReported by PatientHPIFor risk factors, patient reportsno cognitive impairment,no functional impairment,no malnutrition,no frailty,able to climb a flight of stairs (exercise capacity>4 mets),no obstructive sleep apnea,non-smoker,no alcohol misuse,no illicit drug use,no chronic cardiopulmonary condition, andnot obese. For anesthesia hx, patient reportsno hx of anesthesia complications,no allergy to anesthetic agents, andno family history of anesthesia complications. For functional ability, patient reportsable to walk up stairs,able to perform heavy work around the house,no difficulty walking up hills, andable to walk 4 mph.ROS as noted in the HPI here for pre op doing well and is feeling good except for a recent swimmers ear last weeknow feels much better Taj Hughes, DO [address] [facility], [place], [address], [facility] 09/18/2025 10:30:09
--- OUTSIDE RECORDS SUMMARY | 2025-11-06 09:59 | XMS_ITS | Encounter Summary ---
Author Organization [facility] Address [address] [facility] [address] [place] [address] Phone Care Team Providers Care Tooling Supervisor Name Role Phone Taj Andrews DO Primary Care Provider [phone] Encounter Details Date Type Department Care Team (Late st Contact Info) Description 11/25/2024 Transcribe Orders Virtual Department [address] [place] [address] Taj Andrews DO [address] [facility] [address] [place] [address] [email or web address] Right hip pain (Primary Dx); Left hip [...] thigh documented in this encounter Care Teams Tooling Supervisor Relationship Specialty Start Date End Date Taj Andrews DO PCP - General Internal Medicine 10/11/22 documented as of this encounter Additional Source Comments The information contained in this document represents components of the legal health record. It is not the complete legal health record.[facility]
--- OUTSIDE RECORDS SUMMARY | 2025-11-06 09:59 | XMS_ITS | Encounter Summary ---
Author Organization [facility] Address [address] [facility] [address] [place] [address] Phone Care Team Providers Care Liability Analyst Name Role Phone Taj Andrews DO Primary Care Provider [phone] Encounter Details Date Type Department Care Team (Late st Contact Info) Description 09/10/2024 Transcribe Orders Virtual Department [address] [place] [address] Taj Andrews DO [address] [facility] [place] [address] [email or web address] Muscle weakness (generalized) (Primary Dx) Social History [...] (generalized) documented in this encounter Care Teams Liability Analyst Relationship Specialty Start Date End Date Taj Andrews DO PCP - General Internal Medicine 10/11/22 documented as of this encounter Additional Source Comments The information contained in this document represents components of the legal health record. It is not the complete legal health record.[facility]
--- OUTSIDE RECORDS SUMMARY | 2025-11-06 09:59 | XMS_ITS | Continuity of Care Document ---
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) MDM MODERATE MUST MEET 2 OUT OF 3 ELEMENTS: PROBLEMS, DATA OR RISK ELEMENT 1: PROBLEMS ADDRESSED 1 OR MORE CHRONIC ILLNESS WITH EXACERBATION OR 2 OR MORE STABLE CHRONIC ILLNESSES OR 1 UNDIAGNOSED NEW PROBLEM OR 1 ACUTE ILLNESS W/SYMPTOMS OR 1 ACUTE COMPLICATED INJURY ELEMENT 2: DATA MUST MEET 1 OF 3 CATEGORIES CATEGORY 1: REVIEW OF PRIOR EXTERNAL NOTES, REVIEW OF RESULTS, ORDERING OF EACH TEST, ASSESSMENT REQUIRING INDEPENDENT HISTORIAN OR CATEGORY 2: INDEPENDENT INTERPRETATION OF TESTS BY ANOTHER PHYSICIAN OR SPECIALIST OR CATEGORY 3: DISCUSSION OF MGT OR TEST INTERPRETATION W/EXTERNAL PHYSICIAN OR SPECIALIST ELEMENT 3: RISK RISK OF COMPLICATIONS AND/OR MORBIDITY OR MORTALITY OF PATIENT MANAGEMENT PROVIDER MUST THOROUGHLY DOCUMENT EACH ELEMENT THAT IS COVERED Not available 08/07/2025 09:52:30 Plan of Treatment Reminders Order Date Submit Date Provider Last Modified By Organization Details Last Modified Time Details Appointments MEDICARE ANNUAL [facility] 2024 09:45A M DR HUGHES Not available Not available Not available Lab hemoglobi n A1c, QN, blood 2024 025 [facility], [address] [place] [address], [id number], 08/10/2025 11:55:27 TSH + free T4, serum 2024 025 [facility], [address] [place] [address], [id number], 08/10/2025 11:55:27 PSA, serum or plasma 2024 025 [facility], [address] [place] [address], [id number], 08/10/2025 11:55:27 CBC 2024 025 [facility], [address] [place] [address], [id number], 08/07/2025 09:53:59 CMP, serum or plasma 2024 025 [facility], [address] [place] [address], [id number], 08/07/2025 09:53:59 Referral None recorded. Procedures None recorded. Surgeries None recorded. Imaging None recorded. Medication Orders losartan 100 mg-hydroc hlorothia zide 25 mg tablet 2024 025 [id number], [address] [place], [address], 08/07/2025 09:52:46 levothyro xine 50 mcg tablet 2024 025 [id number], [address] [place], [address], 08/07/2025 09:52:46 tamsulosi n 0.4 mg capsule 2024 025 [id number], [address] [place], [address], 08/07/2025 09:52:45 Patient TargetsNo targets recorded. Patient InstructionsNo instructions recorded. Reason for Referral None Reported. Results Created Date Observation Date Name Description Value Unit Range Abnormal Flag Note LastModifiedBy Organization Detail LastModifiedTime Result Notes None recorded. Problems Name Problem SNOMED Code Status Onset Date Resolution Date Notes Provider Name and Address Organization Details Recorded Time Type 2 diabetes mellitus 70593420 Active 2020 Not Available [facility] 12/08/202 3 08:41:15 Hypertens marta disorder 92801418 Active 2020 Not Available [facility] 3 08:41:14 Hypothyro idism 87838031 Active 2020 Not Available [facility] 3 08:41:14 Benign prostatic hyperplas ia 538995484 Active 2020 Not Available [facility] 3 08:41:14 Actinic keratosis 236325103 Active 2020 Not Available [facility] 3 08:41:14 Primary erectile dysfuncti on 610587572 Active 2021 Not Available [facility] 3 08:41:15 Vitamin D deficienc y 67225897 Active 2021 Not Available [facility] 3 08:41:14 Pain in left arm 889366647 Active 2021 Not Available [facility] 3 08:41:14 Tympanosc lerosis involving tympanic membrane only 46174150 Active 2022 [facility] Available [facility] 3 08:41:14 Ataxic gait 07917622 Active 2023 Taj Hughes DO [address] [place] [address], [phone], [facility] 4 14:55:16 Weakness of bilateral lower limb Active 2023 Taj Hughes DO [address] [place] [address], [phone], [facility] 4 14:55:34 Pain of bilateral hip joints 643085420651 43602 Active 2024 Taj Hughes DO [address] [place] [address], [address], [facility] 5 23:40:25 Nocturia due to benign prostatic hypertrop 035553956254 1 Active 2024 Taj Hughes DO [address] [place] [address], [address], [facility] 5 09:45:55 Problem Notes None recorded. Medical Equipment None Reported. Allergies Allergen ID Allergen Name Allergen Category Reaction Reaction Severity Criticality Documentation Date Start Date Code Code System Note Provider Name and Address Organization Details Recorded Time 41870 diatrizoa te meglumine medicatio n rash Not available low 11/06/20252019 3320 RxNorm Not Available [employer] - prod 5 04:21:58 47689 Product containin g penicilli n (product) medicatio n rash Not available low 11/06/20252012 87635 8001 SNOMED Not Available [employer] - prod 5 04:21:58 46808 Penicilli n Not available Not available Not available Not available 11/06/2025 69964 RxNorm Penic illin Not Available [employer] - prod 5 04:22:11 4658 penicilli n V Not available rash Not available Not available 06/24/2021 7984 RxNorm Birgit shrestha [place] [facility] 1 11:23:53 Medications Name Sig Start Date Stop [...] height Body mass index (BMI) Body weight Heart rate Oxygen saturation Systolic And Diastolic Provider Name and Address Organization Details Last Updated DateTime 5 180.34 cm 34.9 kg/m2 062897. 09 g 75 /min 98 % 110/60 mm[Hg] Layla Lizama [facility] 5 09:37:09 Social History Question Answer Notes LastModified by [employer] Details LastModified Time Tobacco Smoking Status Never [facility] 06/24/2021 11:25:33 What Is Your Level Of Caffeine Consumption? Moderate Information not available 06/24/2021 What Type Of Diet Are You Following? REGULAR Information not available 06/24/2021 What Was The Date Of Your Most Recent Tobacco Screening? 11/06/2025 [email or web address] Information not available 11/06/2025 Sex: Male Functional Status Question Answer Note LastModified by [employer] ion Details LastModified Time Do you use any illicit or recreational drugs? No Information not available 11/21/2023 Do you or have you ever used any other forms of tobacco or nicotine? No [email or web address] Information not available 11/21/2023 What is your [...] Details Recorded Time Tdap 0 completed Birgit shrestha [facility] 06/22/2021 08:24:58 Tdap 0 vladimir shrestha [facility] 06/22/2021 08:25:02 Pneumococcal conjugate PCV 13 8 completed Kati Gencarelle [facility] 11/21/2023 08:18:00 pneumococcal polysaccharide PPV23 0 completed Kati Gencarelle henrietta [facility] 11/21/2023 08:18:00 COVID-19, mRNA, LNP-S, PF, 30 mcg/0.3 mL dose 1 completed Kati Gencarelle henrietta [facility] 11/21/2023 08:18:00 COVID-19, mRNA, LNP-S, PF, 30 mcg/0.3 mL dose 1 completed Kati Gencarelle null, [facility] 11/21/2023 08:18:00 Influenza, split virus, quadrivalent, preservative 1 completed Kati Gencarelle null, [facility] 11/21/2023 08:18:00 COVID-19, mRNA, LNP-S, PF, 30 mcg/0.3 mL dose 1 completed Kati Gencarelle null, [facility] 11/21/2023 08:18:00 COVID-19, mRNA, LNP-S, PF, 30 mcg/0.3 mL dose 2 completed Kati Gencarelle null, [facility] 11/21/2023 08:18:00 Influenza, split virus, quadrivalent, preservative 2 completed Kati Gencarelle [facility], [facility] 11/21/2023 08:18:00 Past Encounters Encounter ID Performer Location Encounter Start Date Encounter Closed Date Diagnosis/Indication Diagnosis SNOMED-CT Code Diagnosis ICD10 Code Diagnosis IMO Codes Diagnosis Note [id number] Taj Hughes [facility] [address] [facility] [address] 08/07/2025 09:32:28 08/07/2025 16:07:33 Depression screening 851918743 Z13.31 neg Type 2 hillary betes mellitus 16095692 E11.9 a1c is 7.0has not yet tried the statinlong discussion re meds will order the ct [facility] first Hypertensive disorder 38 478738 I10 stable on losartan will rechk in may Vitamin D deficiency 347 22940 E55.9 will replenish with supp for 2 months Nocturia d ue to benign prostatic hypertrophy 1841372793 101 N40.1 R35.1 1485472 Hypothyroidism 29245075 E03.9 tsh ordered is va Health Concerns Section Related Observation LastModified by Organization Detai ls LastModified Time None Recorded Concern Status LastModified by Organization Details LastModified Time None Recorded Payers Encounter Date Sequence Insurance Name Policy Number Policy Connor Covered Member ID Connor Member ID Guarantor Name 08/07/2025 1 [facility] [id number] Christina Vanegas List[employer] [id number] Gaurav Silverio Notes Date Note Type Note Provider Name and Address Organization Details Recorded Time 5 text/htm l Care Management - DiabetesReported by PatientHPIFor self care, patient reportsseeing eye doctor yearly for dilated eye exam,checking feet regularly,normal range of home blood sugars (in the low 100s), andno side effects from medications. For associated symptoms, patient reportssymptoms are usually well controlled,no fatigue,no dizziness,no excessive sweating,no headaches,no confusion,no increased thirst,no increased appetite,no increased urination,no blurred vision,no numbness of feet, andno calluses on feet. Care Management - HypertensionReported by PatientHPIFor self care, patient reportsnot under emotional stress. For severity, patient reportssymptoms are improvinganddoes not interfere with daily activities. For associated symptoms, patient reportsno dizziness,no lightheadedness,no chest pain,no shortness of breath,no palpitations,no edema,no calf muscle cramps,no blurred vision,no confusion,no headaches, andno fatigue.ROS as noted in the HPI Taj Hughes, [address] [facility], [place], [address], [place] [facility] 08/07/2025 09:53:55
--- OUTSIDE RECORDS SUMMARY | 2025-11-06 09:59 | XMS_ITS | Clinical Summary ---
Author Organization [facility] Address [address] [place], [place] [id number] Phone Care Team Providers Care Executive Advisor Name Role Phone Taj Andrews DO Primary Care Provider [phone] Allergies Active Allergy Reactions Criticality Noted Date [...] Additional history exists COVID-19 VACCINE ( - 2024- season) 2025 RSV VACCINE (1 - 1-dose [...] Medical Devices Not on file Insurance POS [employer] [place] [address] [place] [address] [place] [address] [place] [address] POS Care Teams Executive Advisor Relationship Specialty Start Date End Date Taj Andrews DO PCP - General Internal Medicine 10/11/22 Additional Source Comments The information contained in this document represents components of the legal health record. It is not the complete legal health record.[facility]
--- OUTSIDE RECORDS SUMMARY | 2025-11-06 09:59 | XMS_ITS | Data Portability ---
Author Organization [place] - [facility], Allergy Address [address] [place] [phone] Care Team Providers Care Photographic Artist Name Role Phone KORY HUGHES Primary Care Provider Assessment Encounter Date Assessment Date Assessment LastModified by Organization Details LastModified Time 07/17/2024 07/17/2024 73 year old male presents for ear cleaning. He notes a recent left ear infection treated at urgent care with oral antibiotics and possibly ofloxacin drops. Ears were meticulously cleaned bilaterally today with fine pics and suction. Patient is encouraged to avoid Q-tips in his ears relative to packing the wax in tighter. I discussed with the patient that the left ear appeared to be a resolving otitis externa. I have prescribed ciprodex drops and recommended that he follow up in 3 weeks. [email or web address] Not available 07/17/2024 15:30:51 08/11/2024 08/11/2024 74 year old male presents for follow up of left otitis externa. TMs are intact and middle ear spaces appear well aerated bilaterally. There is no further otorrhea. I discussed with the patient that he may use a few drops of vinegar twice weekly for maintenance. He may use cotton ball coated with vaseline in the shower to maintain dry ears. He will follow up on an as needed basis. [email or web address] Not available 08/11/2024 13:16:14 Plan of Treatment Reminders Order Date Submit Date Provider Last Modified By Organization Details Last Modified Time Details Appointments None recorded. Lab None recorded. Referral None recorded. Procedures None recorded. Surgeries None recorded. Imaging None recorded. Medication Orders Ciprodex 0.3 %-0.1 % ear drops,susp ension 2023 024 [facility] #[id number], [address] [place], [address], 4 16:57:30 Patient TargetsNo targets recorded. Patient InstructionsNo instructions recorded. Reason for Referral None Reported. Problems Name Problem SNOMED Code Status Onset Date Resolution Date Notes Provider Name and Address Organization Details Recorded Time Impacted cerumen of bilateral ears 09641855805 05753 Active 2023 Impacted cerumen, bilateral ; Note: Date Diagnosed : 12/07/2023 10:06 AM (H61.23) Not Available [facility] 4 03:25:08 Disorder of bilateral external ears 62940340168 65788 Active 2023 Other specified disorders of external ear, bilateral ; Note: Date Diagnosed : 12/07/2023 10:06 AM (H61.893) Not Available [facility] 4 03:25:08 Sensorine ural hearing loss of bilateral ears 467473885 Active 2023 Sensorine ural hearing loss, bilateral ; Note: Date Diagnosed : 12/07/2023 10:06 AM (H90.3) Not Available [facility] 4 03:25:08 Otitis externa 1910733 Active 2023 Theo shrestha [place] - [facility] 4 15:32:20 Acute infective otitis externa 245563774 Active 2023 TAWNY DAS MD [address] [place] [address], [place], [address] , [facility] - [facility] 4 09:28:46 Impacted cerumen in right ear 86027993007 10728 Active 2023 TAWNY DAS MD [address] [place] [address],[place] [address], [place], [address] , [facility] - [facility] 4 09:32:26 Problem Notes None recorded. Procedures Surgical History Date Name Laterality Status Provider Name and Address Organization Details Recorded Time 4 Cerumen removal without microscope right completed TAWNY DAS MD [address] [place] [address],[place] [address], [place], [address], [facility] - [facility] 11/14/2024 09:32:19 Imaging Results None recorded. Procedure Notes None recorded. Medical Equipment None Reported. Allergies Allergen ID Allergen Name Allergen Category Reaction Reaction Severity Criticality Documentation Date Start Date Code Code System Note Provider Name and Address Organization Details Recorded Time 81464 Penicilli n Not available other Not available Not available 04/01/2024 73187 RxNorm React ion: Unkno wn; Not Available [facility] 00:48:16 Medications Name Sig Start Date Stop Date Status Note LastModified by Organization Details LastModified Time losartan 100 mg-hydrochlor othiazide 25 mg tablet TAKE 1 TABLET BY MOUTH EVERY DAY active Not Available Not Available No t Available ofloxacin 0.3 % ear drops INSTILL 5 DROPS INTO EACH EAR TWICE A DAY FOR 10 DAYS active Not Available Not Available No t Available levothyroxine 50 mcg tablet TAKE 1 TABLET BY MOUTH EVERY DAY active Not Available Not Available No t Available cefdinir 300 mg capsule TAKE 1 CAP BY MOUTH 2 TIMES A DAY FOR 10 DAYS. TAKE A PROBIOTIC 2 HOURS AFTER EACH DOSE active Not Available Not Available No t Available ciprofloxacin 0.3 %-dexamethaso ne 0.1 % ear drops,suspens ion INSTILL 4 DROPS INTO AFFECTED EAR(S) TWICE A DAY FOR 14 DAYS active Not Available Not Available No t Available tadalafil 20 mg tablet TAKE 1 TABLET BY MOUTH ONCE DAILY NEEDED active Not Available Not Available No t Available Vitals Date Recorded Body height Body mass index (BMI) Body weight Provider Name and Address Organization Details Last Updated DateTime 07/17/2024 180.34 cm 34.2 kg/m2 365120.[address] - [facility] 07/17/2024 15:04:30 Date Recorded Body height Body mass index (BMI) Body weight Provider Name and Address Organization Details Last Updated DateTime 08/11/2024 180.34 cm 34.2 kg/m2 828760.13 g Michaelle Arreguin [facility] 08/11/2024 13:09:14 Date Recorded Body height Body mass index (BMI) Body weight Provider Name and Address Organization Details Last Updated DateTime 11/14/2024 180.34 cm 34.2 kg/m2 933541.13 g Ni Fishman [facility] 11/14/2024 09:01:46 Social History None recorded. Functional Status None recorded. Mental Status None recorded. Family History Nothing Reported. Medical History No medical history recorded. Past Encounters Encounter ID Performer Location Encounter Start Date Encounter Closed Date Diagnosis/Indication Diagnosis SNOMED-CT Code Diagnosis ICD10 Code Diagnosis IMO Codes Diagnosis Note [id number] THEO HIGUERA PA-C [facility] on [address] [place] [phone] 07/17/2024 14:19:12 07/17/2024 15:42:16 Impacted cerumen of bilateral ears [id number] 507316 H61.23 Otitis externa 8858113 H 60.92 [id number] THEO HIGUERA PA-C [facility] on [address] [place] [phone] 08/11/2024 13:00:53 08/11/2024 13:14:06 Otitis externa 9983867 H60.92 [id number] TAWNY DAS MD [facility] on [address] [place] [address], [place] [phone] 11/14/2024 08:50:34 11/14/2024 09:32:33 Acute infective otitis externa 263129108 H60.399 resolved. gave reassuranc e. may f/u as needed. Impacted c erumen in right ear 8257712782 548328 H61.21 Recurrent Cerumen Impactions : Ears were meticulous ly cleaned bilaterall y today with a curette and suction. The patient tolerated this well and will follow up for repeat debridemen t per routine. Health Concerns Section Related Observation LastModified by Organization Detai ls LastModified Time None Recorded Concern Status LastModified by Organization Details LastModified Time None Recorded Advance Directives Directive None Recorded Payers Insurance Date Sequence Insurance Name Policy Number Policy Connor Covered Member ID Connor Member ID Guarantor Name 11/14/2024 1 [facility] [id number] Christina Silverio [id number] Gaurav Silverio Notes Date Note Type Note Provider Name and Address Organization Details Recorded Time 07/17/2024 text/html ROS as noted in the HPI 73 year old male presents for ear cleaning. He reports that a couple of weeks ago he was seen in urgent care for left ear pain and diagnosed with an infection. He was issued oral antibiotic and what he believes were ofloxacin drops. This improved the left ear pain. He denies drainage. He has SNHL and is a hearing aid user. He denies tinnitus or vertigo. DANI ADAMS MD [address] [facility],[address], [address], [facility] - [facility] 07/17/2024 16:57:36 08/11/2024 text/html ROS as noted in the HPI 74 year old male presents for follow up of left otitis externa. He denies drainage. He has completed the Ciprodex drops. TERESA LANDERS MD [address] [place] [address],[address], [address], [facility] - [facility] 08/11/2024 13:22:15 11/14/2024 text/html ROS as noted in the HPI Hx of OE. It has improved. He wears hearing aids. TAWNY DAS MD [address] [facility],[address], [address], [facility] - [facility] 11/14/2024 09:33:23
--- OUTSIDE RECORDS SUMMARY | 2025-11-06 09:59 | XMS_ITS | Data Portability ---
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) [facility] MUST MEET 2 OUT OF 3 [...] hemoglobi n A1c, QN, blood 2024 025 [facility], [address] [place] [address], [address], 08/10/2025 11:55:27 TSH + free T4, serum 2024 025 [facility], [address] [place] [address], [address], 08/10/2025 11:55:27 PSA, serum or plasma 2024 025 [facility], [address] [place] [address], [address], 08/10/2025 11:55:27 CBC 2024 025 [facility], [address] [place] [address], [address], 08/07/2025 09:53:59 CMP, serum or plasma 2024 025 [facility], [address] [place] [address], [address], 08/07/2025 09:53:59 HbA1c (hemoglob in A1c), blood 2023 024 [facility], [address] [place] [address], [address], 03/10/2024 11:16:51 HbA1c (hemoglob in A1c), blood 2023 024 [facility], [address] [place] [address], [address], 09/09/2024 11:51:52 HbA1c (hemoglob in A1c), blood 2023 024 [facility], [address] [facility], [place], [address], 09/10/2024 14:50:09 Referral physical therapist referral 2023 024 [facility], [address], [place], [address], 09/17/2024 08:07:07 physical therapist referral 2023 024 hrubner [facility], [address], [place], [address], 09/17/2024 09:21:58 Procedures None recorded. Surgeries None recorded. Imaging XR, lumbar spine, 2 view 2023 024 hrubner Not available 09/17/2024 08:07:22 Medication Orders losartan 100 mg-hydroc hlorothia zide 25 mg tablet 2024 025 [id number], [address] [place], [address], 08/07/2025 09:52:46 levothyro xine 50 mcg tablet 2024 025 [id number], [address] [place], [address], 08/07/2025 09:52:46 tamsulosi n 0.4 mg capsule 2024 025 [facility][id number], [address] [place], [address], 08/07/2025 09:52:45 Patient TargetsNo targets recorded. Patient InstructionsNo instructions recorded. Reason for Referral Physical Therapist Referral for Ataxic gait see above Referring Physician: Taj Hughes, Internal Medicine, Encounter Date: 09/10/2024 Physical Therapist Referral for Weakness of bilateral lower limb Referring Physician: Taj Hughes, Internal Medicine, Encounter Date: 09/10/2024 Results Created Date Observation Date Name Description Value Unit Range Abnormal Flag Note LastModifiedBy Organization Detail LastModifiedTime 10/17/20 24 10/17/2024 XR, lumba r spine , 2 view No observ ation record ed. [address], [address], 10/20/2024 21:47:20 11/16/20 24 11/16/2024 MRI, lumba r spine , w/o contr ast No observ ation record ed. [facility] [address] [place], [address], 11/24/2024 23:39:29 12/22/19 25 12/22/2024 XR, hip + pelvi s, bilat eral No observ ation record ed. [address], [address], 12/28/2024 21:10:22 Result Notes None recorded. Problems Name Problem SNOMED Code Status Onset Date Resolution Date Notes Provider Name and Address Organization Details Recorded Time Type 2 diabetes mellitus 85972723 Active 2020 Not Available [facility] 3 08:41:15 Hypertens marta disorder 38099627 Active 2020 Not Available [facility] 3 08:41:14 Hypothyro idism 19624673 Active 2020 Not Available [facility] 3 08:41:14 Benign prostatic hyperplas ia 048589216 Active 2020 Not Available [facility] 3 08:41:14 Actinic keratosis 964651338 Active 2020 Not Available [facility] 3 08:41:14 Primary erectile dysfuncti on 715010822 Active 2021 Not Available [facility] 3 08:41:15 Vitamin D deficienc y 24253508 Active 2021 Not Available [facility] 3 08:41:14 Pain in left arm 789473821 Active 2021 Not Available [facility] 3 08:41:14 Tympanosc lerosis involving tympanic membrane only 01243553 Active 2022 Not Available [facility] 3 08:41:14 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 2023 Taj Marisol Hughes, DO [address] [place] [address], [address], [facility] 4 14:55:16 Weakness of bilateral lower limb Active 2023 Taj SotoCiarra Hughes, DO [address] [place] [address], [address], [facility] 4 14:55:34 Pain of bilateral hip joints 859610981025 67956 Active 2024 Taj SotoCiarra Hughes, DO [address] [place] [address], [address], [facility] 5 23:40:25 Nocturia due to benign prostatic hypertrop 577438385828 1 Active 2024 Taj SotoCiarra Hughes, DO [address] [place] [address], [address], [facility] 5 09:45:55 Problem Notes None recorded. Medical Equipment None Reported. Allergies Allergen ID Allergen Name Allergen Category Reaction Reaction Severity Criticality Documentation Date Start Date Code Code System Note Provider Name and Address Organization Details Recorded Time 51983 diatrizoa te meglumine medicatio n rash Not available low 11/06/20252019 3320 RxNorm Not Available [employer] - prod 5 04:21:58 35636 Product containin g penicilli n (product) medicatio n rash Not available low 11/06/20252012 32573 8001 SNOMED Not Available [employer] - prod 5 04:21:58 68331 Penicilli n Not available Not available Not available Not available 11/06/2025 36915 RxNorm Penic illin Not Available [employer] - prod 5 04:22:11 4658 penicilli n V Not available rash Not available Not available 06/24/2021 7984 RxNorm Birgit shrestha [facility] 11:23:53 Medications Name Sig Start [...] and Address Organization Details Last Updated DateTime 4 177.8 cm 34.5 kg/m2 411654. 96 g 78 /min 98 % 122/72 mm[Hg] Margarita Tafoya [facility] 4 14:46:14 Date Recorded Body height Body mass index (BMI) Body weight Heart rate Oxygen saturation Systolic And Diastolic Provider Name and Address Organization Details Last Updated DateTime 5 180.34 cm 34.9 kg/m2 065141. 09 g 75 /min 98 % 110/60 mm[Hg] Layla Buimond [facility] 5 09:37:09 Date Recorded Body height Body mass index (BMI) Body weight Heart rate Oxygen saturation Systolic And Diastolic Provider Name and Address Organization Details Last Updated DateTime 4 180.34 cm 34.9 kg/m2 118412. 09 g 74 /min 96 % 130/84 mm[Hg] Aneesh Miramontes [facility] 4 14:33:35 Date Recorded Body height Body mass index (BMI) Body weight Oxygen saturation Heart rate Systolic And Diastolic Provider Name and Address Organization Details Last Updated DateTime 5 180.34 cm 34.6 kg/m2 589250. 91 g 97 % 77 /min 122/78 mm[Hg] RIGO CHI [facility] 5 10:02:10 Date Recorded Body height Body mass index (BMI) Body weight Heart rate Oxygen saturation Systolic And Diastolic Provider Name and Address Organization Details Last Updated DateTime 5 180.34 cm 34.9 kg/m2 717507. 09 g 77 /min 97 % 116/78 mm[Hg] Ni Ingram [facility] 5 09:47:51 Social History Question Answer Notes LastModified by Organizat ion Details LastModified Time Tobacco Smoking Status Never Smoker Birgit shrestha [facility] 06/24/2021 11:25:33 What Is Your [...] use any illicit or recreational drugs? No [email or web address] Information not available 11/21/2023 Do you or have you ever used any other forms of tobacco or nicotine? No [email or web address] Information not available 11/21/2023 What is your [...] Organization Details Recorded Time Tdap 0 completed SANDRA Fam [facility] 06/22/2021 08:24:58 Tdap 0 vladimir shrestha [facility] 06/22/2021 08:25:02 Pneumococcal conjugate PCV 13 8 completed Kati shrestha [place] [facility] 11/21/2023 08:18:00 pneumococcal polysaccharide PPV23 0 completed Kati Gencarelle null, [facility] 11/21/2023 08:18:00 COVID-19, mRNA, LNP-S, PF, 30 mcg/0.3 mL dose 1 completed Kati Gencarelle null, [facility] 11/21/2023 08:18:00 COVID-19, mRNA, LNP-S, PF, 30 mcg/0.3 mL dose 1 completed Kati Gencarelle null, [facility] 11/21/2023 08:18:00 Influenza, split virus, quadrivalent, preservative 1 completed Kati Gencarelle null, [facility] 11/21/2023 08:18:00 COVID-19, mRNA, LNP-S, PF, 30 mcg/0.3 mL dose 1 completed Kati Gencarelle null, [facility] 11/21/2023 08:18:00 COVID-19, mRNA, LNP-S, PF, 30 mcg/0.3 mL dose 2 completed Kati Gencarelle [facility], [facility] 11/21/2023 08:18:00 Influenza, split virus, quadrivalent, preservative 2 completed Kati Gencarelle [facility] 11/21/2023 08:18:00 Past Encounters Encounter ID Performer Location Encounter Start Date Encounter Closed Date Diagnosis/Indication Diagnosis SNOMED-CT Code Diagnosis ICD10 Code Diagnosis IMO Codes Diagnosis Note [id number] [facility] [address] [facility],[place] [address] 06/24/2021 10:58:22 06/24/2021 12:15:12 Type 2 diabetes mellitus 47241091 E11.9 completely controlled and will prob be back at ifg and out of dmcont storng diet and exercise Hypothyroidism 34253077 E03.9 tsh orderdd Hypertensive disorder 38 587415 I10 stable on losartan [id number] [facility] [address] [facility],[place] [address] 10/17/2021 11:01:34 10/17/2021 13:43:00 Hypertensive disorder 06472268 I10 stable on losartan Hypothyroidism 50491599 E03.9 tsh ordered Type 2 hillary betes mellitus 98902667 E11.9 completely controlled and will prob be back at ifg and out of dmcont storng diet and exercise [id number] [facility] [address] [facility],[place] [address] 02/24/2022 15:06:28 02/24/2022 16:28:37 Hypertensive disorder 31705013 I10 stable on losartan Hypothyroidism 28624111 E03.9 tsh ordered Type 2 hillary betes mellitus 32778623 E11.9 completely controlled and will prob be back at ifg and out of dmcont storng diet and exercise Hepatitis C screening 41 7022644 Z11.59 Primary er ectile dysfunction 559307894 N52.9 [id number] [facility] [address] [facility] [address] 06/05/2022 13:30:36 06/05/2022 14:25:28 Hypothyroidism 35342584 E03.9 tsh ordered Hypertensive disorder 38 104169 I10 stable on losartan Type 2 hillary betes mellitus 49312326 E11.9 completely controlled and will prob be back at ifg and out of dmcont storng diet and exercise Advance care planning 71 5916167 Z71.89 done Active or passive immunization 825118810 Z23 advised due for shingles Vitamin D deficiency 347 73353 E55.9 will replenish with supp for [id number] [facility] [address] [facility] [place] [address] 10/09/2022 09:49:19 10/09/2022 10:50:10 Hypertensive disorder 61092471 I10 stable on losartan Hypothyroidism 95096847 E03.9 tsh ordered Type 2 hillary betes mellitus 81891391 E11.9 completely controlled and will prob be back at ifg and out of dmcont storng diet and exerciseaw aiting [id number] discussion re meds carissa try rosuvastat in Pain in left arm 5680746 00 M79.602 given recent crush type injury will xr [id number] Taj Hughes DO [facility] [address] [facility],[place] [address] 02/16/2023 09:22:49 02/19/2023 10:11:47 Type 2 diabetes mellitus 42926051 E11.9 completely controlled at 6.9 doing quite well despite the winter and holidays cont storng diet and exerciseha s not yet tried the statinlong discussion re meds will order the ct heart first Hypertensive disorder 38 600042 I10 stable on losartan will rechk in may Taj Hughes DO [facility] [address] [facility],[place] [address] 08/14/2023 15:08:06 08/14/2023 16:02:29 Hypertensive disorder 19410911 I10 stable on losartan will rechk in may Hypothyroidism 21330401 E03.9 tsh ordered Type 2 hillary betes mellitus 64513090 E11.9 completely controlled at 7.0 6.9 doing quite well despite the winter and holidays cont strong diet and exerciseha s not yet tried the statinlong discussion re meds will order the ct heart first Tympanoscl erosis involving tympanic membrane only 24158749 H74.09 [id number] Taj Hughes DO [facility] [address] [facility] [place] [place] [address] 11/21/2023 08:17:43 11/21/2023 13:55:37 Hypertensive disorder 54041351 I10 stable on losartan will rechk in may Hypothyroidism 50297134 E03.9 tsh ordered Type 2 hillary betes mellitus 16840535 E11.9 somewhat controlled at 7.2 and 7.0 and 6.9 doing quite well despite the winter and holidays cont strong diet and exerciseha s not yet tried the statinlong discussion re meds will order the ct heart first Vitamin D deficiency 347 97737 E55.9 will replenish with supp for 2 months [id number] Taj Hughes DO [facility] [address] [facility],[place] [address] 03/07/2024 14:34:24 03/07/2024 15:23:01 Hypertensive disorder 64880348 I10 stable on losartan will rechk in may Hypothyroidism 12736548 E03.9 tsh ordered is [place] Type 2 hillary betes mellitus 85978519 E11.9 a1c is pendinghas not yet tried the statinlong discussion re meds will order the ct heart first Vitamin D deficiency 347 98467 E55.9 will replenish with supp for [id number] [facility] [address] [facility] [employer] [facility] [place] [address] 09/10/2024 14:26:00 09/10/2024 15:03:08 Hypertensive disorder 39929870 I10 stable on losartan will rechk in may Hypothyroidism 23125074 E03.9 tsh ordered is va Type 2 hillary betes mellitus 94483619 E11.9 a1c is 7.0has not yet tried the statinlong discussion re meds will order the ct heart first Ataxic gait 97994737 R26 .0 will see him after done Weakness o f bilateral lower limb 9480301330 [id number] [facility] [address] [facility] [employer] [facility] [place] [address] 08/07/2025 09:32:28 08/07/2025 16:07:33 Depression screening 223243016 Z13.31 neg Type 2 hillary betes mellitus 79578744 E11.9 a1c is 7.0has not yet tried the statinlong discussion re meds will order the ct heart first Hypertensive disorder 38 932705 I10 stable on losartan will rechk in may Vitamin D deficiency 347 51597 E55.9 will replenish with supp for 2 months Nocturia d ue to benign prostatic hypertrophy 1834696309 101 N40.1 R35.1 5392610 Hypothyroidism 57870988 E03.9 [place] [id number] Taj Hughes [facility] [address] [facility] [address] 09/18/2025 09:51:36 09/18/2025 11:06:12 Pre-surgery evaluation 262390868 Z01.818 Per the ACC cardiac risk stratifica tion (revised) this patient is deemded a low risk for the proposed cataract OS surgery . He understand s to take his usual medication sprior to surgery (except the tamsulosin ) . Depression screening 171 403664 Z13.31 neg Health Concerns Section Related Observation LastModified by Organization Detai ls LastModified Time None Recorded Concern Status LastModified by Organization Details LastModified Time None Recorded Advance Directives Directive None Recorded Payers Insurance Date Sequence Insurance Name Policy Number Policy Connor Covered Member ID Connor Member ID Guarantor Name 11/03/2025 1 [facility] [id number] Kitda M Listug [id number] Gaurav Listug 11/20/2023 1 [facility] SIGNATURE ADMINISTRATORS - MD BEVERLY BOYD (PPO) Kitda M Listug [id number] Gaurav Listug 02/24/2022 1 REANNA (PPO) [id number] Kitda M Listug [id number] Gaurav List[employer] Notes Date Note Type Note Provider Name and Address Organization Details Recorded Time 03/07/20 24 text/htm l ROS as noted in the HPI here for rech k and is doing well overallusing hearing aidsno cpp no sobrelates is sleeping okjuan Hughes, DO [address] [place] [address], [place], [address], [facility] 03/07/2024 15:22:41 09/10/20 24 text/htm l Care Management - HypertensionReported by PatientHPIFor self care, patient reportsnot under emotional stress. For severity, patient reportssymptoms are improvinganddoes not interfere with daily activities. For associated symptoms, patient reportsno dizziness,no lightheadedness,no chest pain,no shortness of breath,no palpitations,no edema,no calf muscle cramps,no blurred vision,no confusion,no headaches, andno fatigue. Care Management - DiabetesReported by PatientHPIFor self care, patient reportsseeing eye doctor yearly for dilated eye exam,checking feet regularly,normal range of home blood sugars (in the low 100s), andno side effects from medications. For associated symptoms, patient reportssymptoms are usually well controlled,no fatigue,no dizziness,no excessive sweating,no headaches,no confusion,no increased thirst,no increased appetite,no increased urination,no blurred vision,no numbness of feet, andno calluses on feet. tito is doing ok overall and is feeling well except he has noticed a gradual lossof strength in oth legsrelates he has gained some weightno knee painhas been walking daily about 3 mi dailygoing up stirs isok but feels less stable coming down the stairshas been more prone to falling Taj RojasDO kirby [address] [place], [address], [facility] 09/10/2024 15:02:39 08/07/20 25 text/htm l Care Management - DiabetesReported by [...] on feet. Care Management - HypertensionReported by PatientIFor self care, patient reportsnot under emotional stress. For severity, patient reportssymptoms are improvinganddoes not interfere with daily activities. For associated symptoms, patient reportsno dizziness,no lightheadedness,no chest pain,no shortness of breath,no palpitations,no edema,no calf muscle cramps,no blurred vision,no confusion,no headaches, andno fatigue.ROS as noted in the HPI Taj SotoCiarra BobDO [address] [place], [address], [facility] 08/07/2025 09:53:55 09/18/20 25 text/htm l Care Management - HypertensionReported by PatientIFor self care, patient reportsnot under emotional stress. For severity, patient reportssymptoms are improvinganddoes not interfere with daily activities. For associated symptoms, patient reportsno dizziness,no lightheadedness,no chest pain,no shortness of breath,no palpitations,no edema,no calf muscle cramps,no blurred vision,no confusion,no headaches, andno fatigue. Pre-OpReported by PatientHE[facility]ENTERor risk factors, patient reportsno cognitive impairment,no functional [...] feels much better Taj Hughes, DO [address] [place], [address], [facility] 09/18/2025 10:30:09 11/06/20 25 text/htm l Care Management - HypertensionReported by PatientHEBER VALLEY MED[facility]ENTERor self care, patient reportsnot under emotional stress. For severity, patient reportssymptoms are improvinganddoes not interfere with daily activities. For associated symptoms, patient reportsno dizziness,no lightheadedness,no chest pain,no shortness of breath,no palpitations,no edema,no calf muscle cramps,no blurred vision,no confusion,no headaches, andno fatigue. Care Management - DiabetesReported by [facility], patient reportsseeing eye doctor yearly for dilated eye exam,checking feet regularly,normal range of home blood sugars (in the low 100s), andno side effects from medications. For associated symptoms, patient reportssymptoms are usually well controlled,no fatigue,no dizziness,no excessive sweating,no headaches,no confusion,no increased thirst,no increased appetite,no increased urination,no blurred vision,no numbness of feet, andno calluses on feet.ROS as noted in the HPI here for rechk and is doing ok no cp nos sobappetite good Not Available Not Available Not Available
[2025-11-06 15:22] LABS: MANUAL DIFF FLAG NO
[2025-11-06 15:27] LABS: Hematocrit 48.6 % (42.0-52.0); Hemoglobin 16.9 g/dl (14.0-18.0); Imm Gran Abs Auto 0.03 X10*3/uL (0.00-0.03); Imm Gran Pct Auto 0.4 % (0.0-0.4); Lymphocytes Absolute Auto 1.8 X10*3/uL (1.2-4.9); Mean Corpuscular HGB Conc 34.8 g/dl (31.0-36.0); Mean Corpuscular Hemoglobin 30.1 pg (27.0-33.0); Mean Corpuscular Volume 86.6 fL (80.0-98.0); NRBC Abs Auto 0.000 X10*3/uL (0.0-0.012); NRBC Pct Auto 0.0 /100WBC (0.0-0.2); Platelet Count 243 X10*3/uL (160-400); Red Blood Count 5.61 X10*6/uL (4.60-5.80); White Blood Count 8.1 X10*3/uL (4.8-10.8)
[2025-11-06 16:14] LABS: Vitamin B12 247 pg/mL (200-900)
== END 2025-11-06 09:21 | disposition home or self-care (01) ==
LOC: HO.MANLDS 09:20
PROVIDERS: Visit Provider Internal Medicine
DX: E11.9 Type 2 diabetes mellitus without complications (principal); Z13.21 Encounter for screening for nutritional disorder
CPT/HCPCS: 36415; 82306; 82607; 83036; 84403; 85025

== ENCOUNTER 2025-11-10 13:40 | Outpatient (REF) | payer OTHER, SELFPAY ==
[2025-11-10 14:25] LABS: FIT1 NEGATIVE (NEGATIVE)
[2025-11-10 14:26] LABS: FIT Int Ctl YES; FIT Lot M502755; FIT2 NEGATIVE (NEGATIVE)
--- OUTSIDE RECORDS SUMMARY | 2025-11-10 14:52 | XMS_ITS | Clinical Summary ---
Author Organization [facility] Address [address] [place], [place] [id number] Phone Care Team Providers Care Access Specialist Name Role Phone Taj Andrews DO Primary Care Provider [phone] Allergies Active Allergy Reactions Criticality Noted Date [...] on file Insurance POS [place] [address] [place] [address] [place] [place] [address] POS Care Teams Access Specialist Relationship Specialty Start Date End Date Taj Anrdews DO PCP - General Internal Medicine 10/11/22 Additional Source Comments The information contained in this document represents components of the legal health record. It is not the complete legal health record.[facility]
--- OUTSIDE RECORDS SUMMARY | 2025-11-10 14:52 | XMS_ITS | Data Portability ---
Author Organization [place] - [facility], Allergy Address [address] [place] [address] Care Team Providers Care Sewer System Supervisor Name Role Phone KORY HUGHES Primary Care [...] %-0.1 % ear drops,susp ension 2023 024 [facility]/Pharmacy #[id number], [address] [place], [address], 4 16:57:30 Patient TargetsNo targets recorded. Patient InstructionsNo instructions recorded. Reason for Referral None Reported. Problems Name Problem SNOMED Code Status Onset Date Resolution Date Notes Provider Name and Address Organization Details Recorded Time Impacted cerumen of bilateral ears 72332149698 84120 Active 2023 Impacted cerumen, bilateral ; Note: Date Diagnosed : 12/07/2023 10:06 AM (H61.23) Not Available [facility] 4 03:25:08 Disorder of bilateral external ears 86749218730 47062 Active 2023 Other specified disorders of external ear, bilateral ; Note: Date Diagnosed : 12/07/2023 10:06 AM (H61.893) Not Available [facility], [facility] 4 03:25:08 Sensorine ural hearing loss of bilateral ears 203130049 Active 2023 Sensorine ural hearing loss, bilateral ; Note: Date Diagnosed : 12/07/2023 10:06 AM (H90.3) Not Available [facility], [facility] 4 03:25:08 Otitis externa 9216980 Active 2023 Theo shrestha [place] - [facility] 4 15:32:20 Acute infective otitis externa 141816619 Active 2023 TAWNY DAS MD [address] [place] [address], [place], [address] , [facility] - [facility] 4 09:28:46 Impacted cerumen in right ear 49983225111 42585 Active 2023 TAWNY DAS MD [address] [place] [address],[place] [address], [place], [address] , [facility] - [facility] 4 09:32:26 Problem Notes None recorded. Procedures Surgical History Date Name Laterality Status Provider Name and Address Organization Details Recorded Time 4 Cerumen removal without microscope right completed TAWNY DAS MD [address] [place] [address],[place] [address], [place], [address], [facility] - [facility] 11/14/2024 09:32:19 Imaging Results None recorded. Procedure Notes None recorded. Medical Equipment None Reported. Allergies Allergen ID Allergen Name Allergen Category Reaction Reaction Severity Criticality Documentation Date Start Date Code Code System Note Provider Name and Address Organization Details Recorded Time 83483 Penicilli n Not available other Not available Not available 04/01/2024 47307 RxNorm React ion: Unkno wn; Not Available [facility] 00:48:16 Medications Name Sig Start Date Stop [...] Updated DateTime 07/17/2024 180.34 cm 34.2 kg/m2 532508.13 g Laureen Fowler [place] - [facility] 07/17/2024 15:04:30 Date Recorded Body height Body mass index (BMI) Body weight Provider Name and Address Organization Details Last Updated DateTime 08/11/2024 180.34 cm 34.2 kg/m2 783888.13 g Michaelle Arreguin [facility] 08/11/2024 13:09:14 Date Recorded Body height Body mass index (BMI) Body weight Provider Name and Address Organization Details Last Updated DateTime 11/14/2024 180.34 cm 34.2 kg/m2 801921.13 g Ni Fishman [facility] 11/14/2024 09:01:46 Social History None recorded. Functional Status None recorded. Mental Status None recorded. Family History Nothing Reported. Medical History No medical history recorded. Past Encounters Encounter ID Performer Location Encounter Start Date Encounter Closed Date Diagnosis/Indication Diagnosis SNOMED-CT Code Diagnosis ICD10 Code Diagnosis IMO Codes Diagnosis Note [id number] THEO HIGUERA PA-C [facility] on [address] [place] [phone] 07/17/2024 14:19:12 07/17/2024 15:42:16 Impacted cerumen of bilateral ears 7920239844 267784 H61.23 Otitis externa 7520542 H 60.92 [id number] THEO HIGUERA PA-C [facility] on [address] [place] [address] 08/11/2024 13:00:53 08/11/2024 13:14:06 Otitis externa 5902718 H60.92 [id number] TAWNY DAS MD [facility] on [address] [place] [address], [place] [address] 11/14/2024 08:50:34 11/14/2024 09:32:33 Acute infective otitis externa 628647079 H60.399 resolved. gave reassuranc e. may f/u as needed. Impacted c erumen in right ear 0917344052 895214 H61.21 Recurrent Cerumen Impactions : Ears were [...] Connor Member ID Guarantor Name 11/14/[address] [facility] [id number] Christina Silverio [id number] Gaurav Silverio Notes Date Note Type Note [...] tinnitus or vertigo. DANI ADAMS MD [address] [facility],[address], [address], [facility] - [facility] 07/17/2024 16:57:36 08/11/2024 text/html ROS as noted in the HPI 74 year old male presents for follow up of left otitis externa. He denies drainage. He has completed the Ciprodex drops. TERESA LANDERS MD [address] [place] [address],[address], [address], [facility] - [facility] 08/11/2024 13:22:15 11/14/2024 text/html ROS as noted in the HPI Hx of OE. It has improved. He wears hearing aids. TAWNY DAS MD [address] [facility],[address], [address], [facility] - [facility] 11/14/2024 09:33:23
--- OUTSIDE RECORDS SUMMARY | 2025-11-10 14:52 | XMS_ITS | Continuity of Care Document ---
Author Organization [facility] Address [address] [facility] [place] [address] [place] [address] Assessment Encounter Date Assessment Date Assessment LastModified by Organization Details LastModified Time 11/06/2025 11/06/2025 Patient presente d to office today for their Medicare Annual Wellness Visit. Education was provided on healthy nutrition, including a diet rich in fruits and vegetables, minimizing simple carbohydrates, salt, and saturated fats. Encouraged regular cardiovascular exercise such as walking at least 30 minutes daily, 5 times per week. Emphasized preventive health measures and educated pt on fall prevention and community-based lifestyle interventions to help reduce health risks and promote healthy living. Not available 11/06/2025 10:05:06 Plan of Treatment Reminders Order Date Submit Date Provider Last Modified By Organization Details Last Modified Time Details Appointments None recorded. Lab hemoglobin , gastrointe stinal, stool 2024 025 [facility], [address] [place] [address], [address], 5 10:06:18 testostero ne, total, serum 2024 025 [facility], [address] [place] [address], [address], 5 10:06:18 vitamin B12, serum 2024 025 [facility], [address] [place] [address], [address], 5 10:06:18 vitamin D, 25-hydroxy , total, serum 2024 025 [facility], [address] [place] [address], [place], [address], 10:06:18 CBC w/ auto diff 2024 025 [facility], [address] [place] [address], [address], 10:06:18 Referral None recorded. Procedures None recorded. Surgeries None recorded. Imaging None recorded. Medication Orders losartan 100 mg-hydroch lorothiazi de 25 mg tablet 2024 025 [facility]/Pharmacy #[id number], [address] [place], [address], 10:05:03 levothyrox ine 50 mcg tablet 2024 025 [facility]/Pharmacy #[id number], [address] [place] [address], [address], 5 10:05:04 Patient TargetsNo targets recorded. Patient Instructions Encounter Date Encounter Id Patient Instructions Last Modified By Organization Details Last Modified Time 11/06/2025 [id number] benign prostatic hyperplasia: care instructions Not available 11/06/2025 10:05:01 Discussed and explained advance directives such as standard forms to the . Face to face discussion lasted for a duration of ___ minutes. [email or web address] Not available 10/20/2025 11:47:59 Reason for Referral None Reported. Problems Name Problem SNOMED Code Status Onset Date Resolution Date Notes Provider Name and Address Organization Details Recorded Time Type 2 diabetes mellitus 63282932 Active 2020 Not Available [facility] 3 08:41:15 Hypertens marta disorder 65100349 Active 2020 Not Available [facility] 3 08:41:14 Hypothyro idism 66772600 Active 2020 Not Available [facility] 3 08:41:14 Benign prostatic hyperplas ia 487808865 Active 2020 [facility] Available [facility] 3 08:41:14 Actinic keratosis 006320250 Active 2020 [facility] Available [facility] 3 08:41:14 Primary erectile dysfuncti on 798473914 Active 2021 Not Available [facility] 3 08:41:15 Vitamin D deficienc y 60435933 Active 2021 Not Available [facility] 3 08:41:14 Pain in left arm 901757071 Active 2021 [facility] Available [facility] 3 08:41:14 Tympanosc lerosis involving tympanic membrane only 80678842 Active 2022 Not Available [facility] 3 08:41:14 Ataxic gait 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 Active 2023 Taj Andrews, DO [address] [place] [address], [address], [facility] 4 14:55:16 Weakness of bilateral lower limb Active 2023 Taj Andrews DO [address] [place] [address], [address], [facility] 4 14:55:34 Pain of bilateral hip joints 368779531514 48581 Active 2024 Taj Andrews DO [address] [place] [address], [address], [facility] 5 23:40:25 Nocturia due to benign prostatic hypertrop 204034794763 1 Active 2024 Taj Andrews DO [address] [place] [address], [address], [facility] 5 09:45:55 Fatigue 45584029 Active 2024 Taj Andrews DO [address] [place] [address], [address], [facility] 5 10:04:08 Problem Notes None recorded. Medical Equipment None Reported. Allergies Allergen ID Allergen Name Allergen Category Reaction Reaction Severity Criticality Documentation Date Start Date Code Code System Note Provider Name and Address Organization Details Recorded Time 81516 diatrizoa te meglumine medicatio n rash Not available low 11/06/20252019 3320 RxNorm Not Available [facility] 5 04:21:58 74154 Product containin g penicilli n (product) medicatio n rash Not available low 11/06/20252012 19216 8001 SNOMED Not Available [facility] prod 5 04:21:58 36676 Penicilli n Not available Not available Not available Not available 11/06/2025 41550 RxNorm Penic illin Not Available [facility] prod 5 04:22:11 4658 penicilli n V Not available rash Not available Not available 06/24/2021 7984 RxNorm Birgit shrestha [place] [facility] 11:23:53 Medications Name Sig Start [...] losartan 100 mg-hydrochl orothiazide 25 mg tablet Take 1 tablet every day by oral route for 90 days. 2024 active Not Available Not Available Not Avai lable ofloxacin 0.3 % ear drops INSTILL 5 DROPS INTO EACH EAR TWICE A DAY FOR 10 DAYS 09/10 completed Not Available Not Available Not Available tamsulosin 0.4 mg capsule TAKE 1 CAPSULE BY MOUTH EVERY DAY active Not Available Not Available No t Available levothyroxi ne 50 mcg tablet Take 1 tablet every day by oral route for 90 days. 2024 active Not Available Not Available Not Avai lable hydrochloro thiazide 25 mg tablet TAKE 1 [...] and Address Organization Details Last Updated DateTime 180.34 cm 34.9 kg/m2 182705. 09 g 77 /min 97 % 116/78 mm[Hg] Ni Ingram [facility] 09:47:51 Social History Question Answer Notes LastModified by Organizat ion Details LastModified Time Tobacco Smoking Status [facility]24[facility]2021 11:25:33 What Is [...] use any illicit or recreational drugs? No [email or web address] Information not available 11/21/2023 Do you or have you ever used any other forms of tobacco or nicotine? No [email or web address] Information not available 11/21/2023 What is your [...] Recorded Time Tdap 0 completed Birgit shrestha [facility] 06/22/2021 08:24:58 Tdap 0 vladimir shrestha [facility] 06/22/2021 08:25:02 Pneumococcal conjugate PCV 13 8 completed Kati Gencarelle henrietta [facility] 11/21/2023 08:18:00 pneumococcal polysaccharide PPV23 0 completed Kati Gencarelle henrietta [facility] 11/21/2023 08:18:00 COVID-19, mRNA, LNP-S, PF, 30 mcg/0.3 mL dose 1 completed Kati Gencarelle henrietta [facility] 11/21/2023 08:18:00 COVID-19, mRNA, LNP-S, PF, 30 mcg/0.3 mL dose 1 completed Kati Gencarelle henrietta [facility] 11/21/2023 08:18:00 Influenza, split virus, quadrivalent, preservative 1 completed Kati Gencarelle null, [facility] 11/21/2023 08:18:00 COVID-19, mRNA, LNP-S, PF, 30 mcg/0.3 mL dose 1 completed Kati Gencarelle henrietta, [facility] 11/21/2023 08:18:00 COVID-19, mRNA, LNP-S, PF, 30 mcg/0.3 mL dose 2 completed Kati Gencarelle null, [facility] 11/21/2023 08:18:00 Influenza, split virus, quadrivalent, preservative 2 completed Kati Gencarelle [facility], [facility] 11/21/2023 08:18:00 Past Encounters Encounter ID Performer Location Encounter Start Date Encounter Closed Date Diagnosis/Indication Diagnosis SNOMED-CT Code Diagnosis ICD10 Code Diagnosis IMO Codes Diagnosis Note [id number] Taj Andrews [facility] [address] [facility] [address] 11/06/2025 09:29:01 11/06/2025 10:20:30 Screening for cardiovascular system disease 831808740 Z13.6 await lab Screening for malignant neoplasm of colon 058864399 Z12.11 Depression screening 171 073727 Z13.31 neg Type 2 hillary betes mellitus 48785814 E11.9 a1c is pending 7.0has not yet tried the statinlong discussion re meds will order the ct heart first Hypertensive disorder 38 694246 I10 stable on losartan will rechk in may Benign pro static hyperplasia 458265996 N40.1 R35.1 Hypothyroidism 92155927 E03.9 [place] Fatigue 17165125 R53.82 930773 Health Concerns Section Related Observation LastModified by Organization Detai ls LastModified Time None Recorded Concern Status LastModified by Organization Details LastModified Time None Recorded Payers Encounter Date Sequence Insurance Name Policy Number Policy Connor Covered Member ID Connor Member ID Guarantor Name 11/06/2025 1 [facility] [id number] Christina Vanegas [employer] [id number] Gaurav Silverio Notes Date Note Type Note [...] doing ok no cp nos sobappetite good Taj Anderws, [address] [facility], [place], [address], [facility] 11/06/2025 10:07:12
--- OUTSIDE RECORDS SUMMARY | 2025-11-10 14:52 | XMS_ITS | Encounter Summary ---
Author Organization [facility] Address [address] [facility] [address] [place] [address] Phone Care Team Providers Care Foreign Service Officer Name Role Phone Taj Andrews DO Primary Care Provider [phone] Encounter Details Date Type Department Care Team (Late st Contact Info) Description 09/10/2024 Transcribe Orders Virtual Department [address] [place] [address] Taj Andrews DO [address] [facility] [place] [address] [place] [address] [email or web address] Muscle weakness (generalized) (Primary Dx) Social History [...] (generalized) documented in this encounter Care Teams Foreign Service Officer Relationship Specialty Start Date End Date Taj Andrews DO PCP - General Internal Medicine 10/11/22 documented as of this encounter Additional Source Comments The information contained in this document represents components of the legal health record. It is not the complete legal health record.[facility]
--- OUTSIDE RECORDS SUMMARY | 2025-11-10 14:52 | XMS_ITS | Data Portability ---
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) [facility] MUST MEET 2 OUT OF 3 [...] THAT IS COVERED Not available 08/07/2025 09:52:30 11/06/2025 11/06/2025 Patient presente d to office [...] hemoglobin , gastrointe stinal, stool 2024 025 [facility], [address] [place] [address], [address], 10:06:18 testostero ne, total, serum 2024 025 [facility], [address] [place] [address], [address], 10:06:18 vitamin B12, serum 2024 025 [facility], [address] [place] [address], [address], 10:06:18 vitamin D, 25-hydroxy , total, serum 2024 025 [facility], [address] [place] [address], [address], 5 10:06:18 CBC w/ auto diff 2024 025 [facility], [address] [place] [address], [address], 5 10:06:18 hemoglobin A1c, QN, blood 2024 025 [facility], [address] [place] [address], [address], 5 11:55:27 TSH + free T4, serum 2024 025 [facility], [address] [place] [address], [address], 5 11:55:27 PSA, serum or plasma 2024 025 [facility], [address] [place] [address], [address], 5 11:55:27 CBC 2024 025 [facility], [address] [place] [address], [address], 5 11:42:01 CMP, serum or plasma 2024 025 [facility], [address] [place] [address], [address], 5 09:53:59 HbA1c (hemoglobi n A1c), blood 2023 024 [facility], [address] [place] [address], [address], 4 11:16:51 HbA1c (hemoglobi n A1c), blood 2023 024 [facility], [address] [place] [address], [address], 4 11:51:52 HbA1c (hemoglobi n A1c), blood 2023 024 [facility], [address] [place] [address], [address], 4 14:50:09 Referral physical therapist referral 2023 024 [facility], [address], [place], [address], 4 08:07:07 physical therapist referral 2023 024 [email or web address], [address], [place], [address], 4 09:21:58 Procedures None recorded. Surgeries None recorded. Imaging XR, lumbar spine, 2 view 2023 024 [email or web address] Not available 4 08:07:22 Medication Orders losartan 100 mg-hydroch lorothiazi de 25 mg tablet 2024 025 [facility], [address] [place] [address], [address], 5 10:05:03 levothyrox ine 50 mcg tablet 2024 025 [facility], [address] [place] [address], [address], 5 10:05:04 losartan 100 mg-hydroch lorothiazi de 25 mg tablet 2024 025 [facility], [address] [place] [address], [address], 5 09:52:46 levothyrox ine 50 mcg tablet 2024 025 [facility], [address] [place] [address], [address], 5 09:52:46 tamsulosin 0.4 mg capsule 2024 025 [facility], [address] [place] [address], [address], 5 09:52:45 Patient TargetsNo targets recorded. Patient Instructions Encounter Date Encounter Id Patient Instructions Last Modified By Organization Details Last Modified Time 11/06/2025 [id number] benign prostatic hyperplasia: care instructions [email or web address] Not available 11/06/2025 10:05:01 Discussed and explained advance directives such as standard forms to the . Face to face discussion lasted for a duration of ___ minutes. [email or web address] Not available 10/20/2025 11:47:59 Reason for Referral Physical Therapist Referral for Ataxic gait see above Referring Physician: Taj Andrews, Internal Medicine, Encounter Date: 09/10/2024 Physical Therapist Referral for Weakness of bilateral lower limb Referring Physician: Taj Andrews, Internal Medicine, Encounter Date: 09/10/2024 Results Created Date Observation Date Name Description Value Unit Range Abnormal Flag Note LastModifiedBy Organization Detail LastModifiedTime 10/17/20 24 10/17/2024 XR, lumba r spine , 2 view No observ ation record ed. [address], [address], 10/20/2024 21:47:20 11/16/20 24 11/16/2024 MRI, lumba r spine , w/o contr ast No observ ation record ed. [facility] [address] [place], [address], 11/24/2024 23:39:29 12/22/19 25 12/22/2024 XR, hip + pelvi s, bilat eral No observ ation record ed. [email or web address] [address], [address], 12/28/2024 21:10:22 Result Notes None recorded. Problems Name Problem SNOMED Code Status Onset Date Resolution Date Notes Provider Name and Address Organization Details Recorded Time Type 2 diabetes mellitus 36142503 Active 2020 Not Available [facility] 3 08:41:15 Hypertens marta disorder 46204537 Active 2020 Not Available [facility] 3 08:41:14 Hypothyro idism 56646163 Active 2020 Not Available [facility] 3 08:41:14 Benign prostatic hyperplas ia 233533523 Active 2020 Not Available [facility] 3 08:41:14 Actinic keratosis 512812714 Active 2020 Not Available [facility] 3 08:41:14 Primary erectile dysfuncti on 687097778 Active 2021 Not Available [facility] 3 08:41:15 Vitamin D deficienc y 08434447 Active 2021 Not Available [facility] 3 08:41:14 Pain in left arm 933851636 Active 2021 Not Available [facility] 3 08:41:14 Tympanosc lerosis involving tympanic membrane only 82647105 Active 2022 Not Available [facility] 3 08:41:14 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 2023 Taj Andrews DO [address] [place] [address], [address], [facility] 4 14:55:16 Weakness of bilateral lower limb Active 2023 Taj Andrews DO [address] [place] [address], [address], [facility] 4 14:55:34 Pain of bilateral hip joints 995810356924 48427 Active 2024 Taj Andrews DO [address] [place] [address], [address], [facility] 5 23:40:25 Nocturia due to benign prostatic hypertrop hy 049629763465 1 Active 2024 Taj Andrews DO [address] [place] [address], [address], [facility] 5 09:45:55 Fatigue 27893875 Active 2024 Taj Andrews DO [address] [place] [address], [address], [facility] 5 10:04:08 Problem Notes None recorded. Medical Equipment None Reported. Allergies Allergen ID Allergen Name Allergen Category Reaction Reaction Severity Criticality Documentation Date Start Date Code Code System Note Provider Name and Address Organization Details Recorded Time 08164 diatrizoa te meglumine medicatio n rash Not available low 11/06/20252019 3320 RxNorm Not Available blaine - External Data Service - prod 5 04:21:58 10355 Product containin g penicilli n (product) medicatio n rash Not available low 11/06/20252012 36617 8001 SNOMED Not Available blaine - External Data [employer] - prod 5 04:21:58 00008 Penicilli n Not available Not available Not available Not available 11/06/2025 29334 RxNorm Penic illin Not Available blaine - External Data Service - prod 5 04:22:11 4658 penicilli n V Not available rash Not available Not available 06/24/2021 7984 RxNorm Birgit shrestha [place] [facility] 11:23:53 Medications Name Sig Start [...] Updated DateTime 4 177.8 cm 34.5 kg/m2 882309. 96 g 78 /min 98 % 122/72 mm[Hg] Margarita Tafoya [facility] 4 14:46:14 Date Recorded Body height Body mass index (BMI) Body weight Heart rate Oxygen saturation Systolic And Diastolic Provider Name and Address Organization Details Last Updated DateTime 5 180.34 cm 34.9 kg/m2 498052. 09 g 75 /min 98 % 110/60 mm[Hg] Layla Lizama [facility] 5 09:37:09 Date Recorded Body height Body mass index (BMI) Body weight Heart rate Oxygen saturation Systolic And Diastolic Provider Name and Address Organization Details Last Updated DateTime 4 180.34 cm 34.9 kg/m2 515282. 09 g 74 /min 96 % 130/84 mm[Hg] Aneesh Miramontes [facility] 4 14:33:35 Date Recorded Body height Body mass index (BMI) Body weight Oxygen saturation Heart rate Systolic And Diastolic Provider Name and Address Organization Details Last Updated DateTime 5 180.34 cm 34.6 kg/m2 466618. 91 g 97 % 77 /min 122/78 mm[Hg] RGIO CHI [facility] 5 10:02:10 Date Recorded Body height Body mass index (BMI) Body weight Heart rate Oxygen saturation Systolic And Diastolic Provider Name and Address Organization Details Last Updated DateTime 5 180.34 cm 34.9 kg/m2 486993. 09 g 77 /min 97 % 116/78 mm[Hg] Ni nIgram [facility] 5 09:47:51 Social History Question Answer Notes LastModified by [employer] Details LastModified Time Tobacco Smoking Status Never Smoker Birgit shrestha [facility] 06/24/2021 11:25:33 What Is Your Level Of Caffeine Consumption? Moderate Information not available 06/24/2021 What Type Of Diet Are You Following? REGULAR Information not available 06/24/2021 What Was The Date Of Your Most Recent Tobacco Screening? 11/06/2025 [email or web address] Information not available 11/06/2025 Sex: Male Functional Status Question Answer Note LastModified by [employer] Details LastModified Time Do you use any illicit or recreational drugs? No [email or web address] Information not available 11/21/2023 Do you or have you ever used any other forms of tobacco or nicotine? No [email or web address] Information not available 11/21/2023 What is your [...] Recorded Time Tdap 0 completed Birgit shrestha, [facility] 06/22/2021 08:24:58 [facility] 08:25:02 Pneumococcal conjugate PCV 13 8 completed [facility] 11/21/2023 08:18:00 pneumococcal polysaccharide PPV23 0 completed Kati [facility] 11/21/2023 08:18:00 COVID-19, mRNA, LNP-S, PF, 30 mcg/0.3 mL dose 1 completed Kati [facility] 11/21/2023 08:18:00 COVID-19, mRNA, LNP-S, PF, 30 mcg/0.3 mL dose 1 completed Kati [facility] 11/21/2023 08:18:00 Influenza, split virus, quadrivalent, preservative 1 completed Kati [facility] 11/21/2023 08:18:00 COVID-19, mRNA, LNP-S, PF, 30 mcg/0.3 mL dose 1 completed Kati [facility] 11/21/2023 08:18:00 COVID-19, mRNA, LNP-S, PF, 30 mcg/0.3 mL dose 2 completed Kati [facility] 11/21/2023 08:18:00 Influenza, split virus, quadrivalent, preservative 2 completed Kati shrestha [facility] 11/21/2023 08:18:00 Past Encounters Encounter ID Performer Location Encounter Start Date Encounter Closed Date Diagnosis/Indication Diagnosis SNOMED-CT Code Diagnosis ICD10 Code Diagnosis IMO Codes Diagnosis Note [id number] Taj Andrews [facility] [address] [facility] [facility] [place] [address] 06/24/2021 10:58:22 06/24/2021 12:15:12 Type 2 diabetes mellitus 79630245 E11.9 completely controlled and will prob be back at ifg and out of dmcont storng diet and exercise Hypothyroidism 65334975 E03.9 tsh orderdd Hypertensive disorder 38 890362 I10 stable on losartan [id number] Taj Andrews [facility] [address] [facility] [facility] [address] 10/17/2021 11:01:34 10/17/2021 13:43:00 Hypertensive disorder 14217967 I10 stable on losartan Hypothyroidism 66341131 E03.9 tsh ordered Type 2 hillary betes mellitus 90755553 E11.9 completely controlled and will prob be back at ifg and out of dmcont storng diet and exercise [id number] Taj Andrews [facility] [address] [facility] [address] 02/24/2022 15:06:28 02/24/2022 16:28:37 Hypertensive disorder 17225077 I10 stable on losartan Hypothyroidism 72805309 E03.9 tsh ordered Type 2 hillary betes mellitus 68276157 E11.9 completely controlled and will prob be back at ifg and out of dmcont storng diet and exercise Hepatitis C screening 41 0371721 Z11.59 Primary er ectile dysfunction 170555989 N52.9 [facility] refill [id number] [facility] [address] [facility] [address] 06/05/2022 13:30:36 06/05/2022 14:25:28 Hypothyroidism 99438182 E03.9 tsh ordered Hypertensive disorder 38 353745 I10 stable on losartan Type 2 hillary betes mellitus 09836864 E11.9 completely controlled and will prob be back at ifg and out of dmcont storng diet and exercise Advance care planning 71 2394216 Z71.89 done Active or passive immunization 856270423 Z23 advised due for shingles Vitamin D deficiency 347 30663 E55.9 will replenish with supp for 2 months [id number] Taj Andrews [facility] [address] [facility],[place] [address] 10/09/2022 09:49:19 10/09/2022 10:50:10 Hypertensive disorder 22364642 I10 stable on losartan Hypothyroidism 79068177 E03.9 tsh ordered Type 2 hillary betes mellitus 53606980 E11.9 completely controlled and will prob be back at ifg and out of dmcont storng diet and exerciseaw aiting [id number] discussion re meds carissa try rosuvastat in Pain in left arm 1487151 00 M79.602 given recent crush type injury will xr [id number] Taj Andrews [facility] [address] [facility] [address] 02/16/2023 09:22:49 02/19/2023 10:11:47 Type 2 diabetes mellitus 03054639 E11.9 completely controlled at 6.9 doing quite well despite the winter and holidays cont storng diet and exerciseha s not yet tried the statinlong discussion re meds will order the ct heart first Hypertensive disorder 38 042694 I10 stable on losartan will rechk in may Taj Andrews [facility] [address] [facility],[place] [address] 08/14/2023 15:08:06 08/14/2023 16:02:29 Hypertensive disorder 10725569 I10 stable on losartan will rechk in may Hypothyroidism 76457398 E03.9 tsh ordered Type 2 hillary betes mellitus 60008553 E11.9 completely controlled at 7.0 6.9 doing quite well despite the winter and holidays cont strong diet and exerciseha s not yet tried the statinlong discussion re meds will order the ct heart first Tympanoscl erosis involving tympanic membrane only 54690501 H74.09 [id number] Taj Andrews [facility] [address] [facility] [address] 11/21/2023 08:17:43 11/21/2023 13:55:37 Hypertensive disorder 98180851 I10 stable on losartan will rechk in may Hypothyroidism 36409212 E03.9 tsh ordered Type 2 hillary betes mellitus 61335412 E11.9 somewhat controlled at 7.2 and 7.0 and 6.9 doing quite well despite the winter and holidays cont strong diet and exerciseha s not yet tried the statinlong discussion re meds will order the ct heart first Vitamin D deficiency 347 64014 E55.9 will replenish with supp for 2 months [id number] Taj Andrews [facility] [address] [facility] [address] 03/07/2024 14:34:24 03/07/2024 15:23:01 Hypertensive disorder 96148972 I10 stable on losartan will rechk in may Hypothyroidism 50369049 E03.9 tsh ordered is [place] Type 2 hillary betes mellitus 98084874 E11.9 a1c is pendinghas not yet tried the statinlong discussion re meds will order the ct heart first Vitamin D deficiency 347 56224 E55.9 will replenish with supp for 2 months [id number] Taj Andrews [facility] [address] [facility],[place] [address] 09/10/2024 14:26:00 09/10/2024 15:03:08 Hypertensive disorder 02795602 I10 stable on losartan will rechk in may Hypothyroidism 10866225 E03.9 tsh ordered is [place] Type 2 hillary betes mellitus 28760426 E11.9 a1c is 7.0has not yet tried the statinlong discussion re meds will order the ct heart first Ataxic gait 15068347 R26 .0 will see him after done Weakness o f bilateral lower limb 5833211433 17623 M62.81 [id number] Taj Andrews [facility] [address] [facility] [address],[place] [address] 08/07/2025 09:32:28 08/07/2025 16:07:33 Depression screening 576900333 Z13.31 neg Type 2 hillary betes mellitus 06556776 E11.9 a1c is 7.0has not yet tried the statinlong discussion re meds will order the ct heart first Hypertensive disorder 38 949335 I10 stable on losartan will rechk in may Vitamin D deficiency 347 41307 E55.9 will replenish with supp for 2 months Nocturia d ue to benign prostatic hypertrophy 6526614964 101 N40.1 R35.1 5425006 Hypothyroidism 52182515 E03.9 tsh ordered [place] [id number] Taj Andrews [facility] [address] [facility],[place] [address] 09/18/2025 09:51:36 09/18/2025 11:06:12 Pre-surgery evaluation 816644182 Z01.818 Per the ACC cardiac risk stratifica tion (revised) this patient is deemded a low risk for the proposed cataract OS surgery . He understand s to take his usual medication sprior to surgery (except the tamsulosin ) . Depression screening 171 953408 Z13.31 neg [id number] aTj Andrews [facility] [address] [facility],[place] [address] 11/06/2025 09:29:01 11/06/2025 10:20:30 Screening for cardiovascular system disease 825261109 Z13.6 await lab Screening for malignant neoplasm of colon 349597462 Z12.11 Depression screening 171 912365 Z13.31 neg Type 2 hillary betes mellitus 62940907 E11.9 a1c is pending 7.0has not yet tried the statinlong discussion re meds will order the ct heart first Hypertensive disorder 38 205305 I10 stable on losartan will rechk in may Benign pro static hyperplasia 795175729 N40.1 R35.1 Hypothyroidism 07093416 E03.9 tsh ordered is [place] Fatigue 93596535 R53.82 [id number] Health Concerns Section Related Observation LastModified by Organization Detai ls LastModified Time None Recorded Concern Status LastModified by Organization Details LastModified Time None Recorded Advance Directives Directive None Recorded Payers Insurance Date Sequence Insurance Name Policy Number Policy Connor Covered Member ID Connor Member ID Guarantor Name 11/03/2025 1 [facility] [id number] Christina Vanegas [employer] [id number] Gaurav [employer] 11/20/2023 1 [facility] SIGNATURE ADMINISTRATORS - MD BEVERLY BOYD (PPO) Christina Vanegas [employer] [id number] Gaurav [employer] 02/24/2022 1 KAREN-SANDRA (PPO) [id number] Christina Vanegas [employer] [id number] Gaurav [employer] Notes Date Note Type Note Provider Name and Address Organization Details Recorded Time 4 text/htm l ROS as noted in the HPI here for rech k and is doing well overallusing hearing aidsno cpp no sobrelates is sleeping okappetite bhavya ok Taj Andrews, DO [address] [place] [address], [address], [facility] 03/07/2024 15:22:41 4 text/htm l Care Management - HypertensionReported by [...] numbness of feet, andno calluses on feet. relaes is doing ok overall and is feeling well except he has noticed a gradual lossof strength in oth legsrelates he has gained some weightno knee painhas been walking daily about 3 mi dailygoing up stirs isok but feels less stable coming down the stairshas been more prone to falling Taj Andrews [address] [place], [address], [facility] 09/10/2024 15:02:39 5 text/htm l Care Management - DiabetesReported [...] fatigue.ROS as noted in the HPI Taj Andrews DO [address] [place], [address], [facility] 08/07/2025 09:53:55 5 text/htm l Care Management - HypertensionReported by PatientIFor self care, patient reportsnot under emotional stress. For severity, patient reportssymptoms are improvinganddoes not interfere with daily activities. For associated symptoms, patient reportsno dizziness,no lightheadedness,no chest pain,no shortness of breath,no palpitations,no edema,no calf muscle cramps,no blurred vision,no confusion,no headaches, andno fatigue. Pre-OpReported by PatientIFor risk factors, patient reportsno cognitive impairment,no functional [...] ear last weeknow feels much better Taj Andrews DO [address] [place], [address], [facility] 09/18/2025 10:30:09 5 text/htm l Care Management - HypertensionReported [...] ok no cp nos sobappetite good Taj Andrews DO [address] [place], [address], [facility] 11/06/2025 10:07:12
--- OUTSIDE RECORDS SUMMARY | 2025-11-10 14:52 | XMS_ITS | Encounter Summary ---
Author Organization [facility] Address [address] [facility] [address] [place] [address] Phone Care Team Providers Care Steam And Power Superintendent Name Role Phone Taj Andrews DO Primary Care Provider [phone] Encounter Details Date Type Department Care Team (Late st Contact Info) Description 11/25/2024 Transcribe Orders Virtual Department [address] [place] [address] Taj Andrews DO [address] [facility] [place] [address] [place] [address] Right hip pain (Primary Dx); Left hip [...] thigh documented in this encounter Care Teams Steam And Power Superintendent Relationship Specialty Start Date End Date Taj Andrews DO PCP - General Internal Medicine 10/11/22 documented as of this encounter Additional Source Comments The information contained in this document represents components of the legal health record. It is not the complete legal health record.[facility]
--- OUTSIDE RECORDS SUMMARY | 2025-11-10 14:52 | XMS_ITS | Encounter Summary ---
Author Organization [facility] Address [address] [place] [address] Phone Care Team Providers Care Sharebroker Name Role Phone Taj Andrews DO Primary Care Provider Encounter Details Date Type Department Care Team (Late st Contact Info) Description 10/09/2022 Transcribe Orders Virtual Department [address] [place] [address] Taj Andrews DO [address] [facility] [address] Left arm pain (Primary Dx) Social History [...] limb documented in this encounter Care Teams Sharebroker Relationship Specialty Start Date End Date BobTaj orr [email or web address] PCP - General Internal Medicine 10/11/22 documented as of this encounter Additional Source Comments The information contained in this document represents components of the legal health record. It is not the complete legal health record.[facility]
--- OUTSIDE RECORDS SUMMARY | 2025-11-10 14:52 | XMS_ITS | Continuity of Care Document ---
Author Organization [facility] Address [address] [place] [address] [place] [address] Assessment No assessment recorded. Plan of Treatment Reminders Order Date Submit Date Provider Last Modified By Organization Details Last Modified Time Details Appointments None record ed. Lab None record ed. Referral None record ed. Procedures None record ed. Surgeries None record ed. Imaging None record ed. Medication Orders None record ed. Patient TargetsNo targets recorded. Patient InstructionsNo instructions recorded. Reason for Referral None Reported. Problems Name Problem SNOMED Code Status Onset Date Resolution Date Notes Provider Name and Address Organization Details Recorded Time Type 2 diabetes mellitus 31008105 Active 2020 Not Available [facility] 3 08:41:15 Hypertens marta disorder 25818253 Active 2020 Not Available [facility] 3 08:41:14 Hypothyro idism 11473018 Active 2020 Not Available [facility] 3 08:41:14 Benign prostatic hyperplas ia 476455500 Active 2020 Not Available [facility] 3 08:41:14 Actinic keratosis 304354412 Active 2020 Not Available [facility] 3 08:41:14 Primary erectile dysfuncti on 818800219 Active 2021 Not Available [facility] 3 08:41:15 Vitamin D deficienc y 08396668 Active 2021 Not Available [facility] 3 08:41:14 Pain in left arm 906400142 Active 2021 Not Available [facility] 3 08:41:14 Tympanosc lerosis involving tympanic membrane only 85132187 Active 2022 Not Available [facility] 3 08:41:14 Ataxic gait 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 Active 2023 Taj CharlesCiarra Andrews, DO [address] [place] [address], [phone], [facility] 4 14:55:16 Weakness of bilateral lower limb Active 2023 Taj Andrews, DO [address] [place] [address], [phone], [facility] 4 14:55:34 Pain of bilateral hip joints 622094405487 94497 Active 2024 Taj CharlesCiarra Andrews, [address], [address], [facility] 5 23:40:25 Nocturia due to benign prostatic hypertrop 441084245738 1 Active 2024 Taj Andrews, DO [address] [place] [address], [phone], [facility] 5 09:45:55 Fatigue 11835569 Active 2024 Taj CharlesCiarra Andrews, [address], [address], [facility] 5 10:04:08 Problem Notes None recorded. Medical Equipment None Reported. Allergies Allergen ID Allergen Name Allergen Category Reaction Reaction Severity Criticality Documentation Date Start Date Code Code System Note Provider Name and Address Organization Details Recorded Time 89805 diatrizoa te meglumine medicatio n rash Not available low 11/06/20252019 3320 RxNorm Not Available blaine - [employer] - prod 5 04:21:58 11037 Product containin g penicilli n (product) medicatio n rash Not available low 11/06/20252012 82769 8001 SNOMED Not Available bl[facility] - [employer] - prod 5 04:21:58 51977 Penicilli n Not available Not available Not available Not available 11/06/2025 60721 RxNorm Penic illin Not Available blaine - External Data [employer] - prod 5 04:22:11 4658 penicilli n V Not available rash Not available Not available 06/24/2021 7984 RxNorm Birgit shrestha [place] - [facility] 11:23:53 Medications Name Sig [...] Updated DateTime 5 180.34 cm 34.6 kg/m2 401663. 91 g 97 % 77 /min 122/78 mm[Hg] RIGO CHI [facility] 5 10:02:10 Social History Question Answer Notes LastModified by FlagT[employer] Details LastModified Time Tobacco Smoking Status Never Smoker Birgit shrestha [facility] 06/24/2021 11:25:33 What Is Your Level Of Caffeine Consumption? Moderate Information not available 06/24/2021 What Type Of Diet Are You Following? REGULAR Information not available 06/24/2021 What Was The Date Of Your Most Recent Tobacco Screening? 11/06/2025 [email or web address] Information not available 11/06/2025 Sex: Male Functional Status Question Answer Note LastModified by [employer] Details LastModified Time Do you use any illicit or recreational drugs? No [email or web address] Information not available 11/21/2023 Do you or have you ever used any other forms of tobacco or nicotine? No Information not available 11/21/2023 What is your [...] Details Recorded Time [facility]58 [facility] 08:25:02 Pneumococcal conjugate PCV 13 8 completed Kati Gencarelle [facility] 11/21/2023 08:18:00 pneumococcal polysaccharide PPV23 0 completed Kati Gencarelle [facility] 11/21/2023 08:18:00 COVID-19, mRNA, LNP-S, PF, 30 mcg/0.3 mL dose 1 completed Kati Gencarelle [facility] 11/21/2023 08:18:00 COVID-19, mRNA, LNP-S, PF, 30 mcg/0.3 mL dose 1 completed Kati Gencarelle [facility] 11/21/2023 08:18:00 Influenza, split virus, quadrivalent, preservative 1 completed Kati Gencarelle [facility] 11/21/2023 08:18:00 COVID-19, mRNA, LNP-S, PF, 30 mcg/0.3 mL dose 1 completed Kati Gencarelle [facility] 11/21/2023 08:18:00 COVID-19, mRNA, LNP-S, PF, 30 mcg/0.3 mL dose 2 completed Kati Gencarelle henrietta [facility] 11/21/2023 08:18:00 Influenza, split virus, quadrivalent, preservative 2 completed Kati Ham henrietta [facility] 11/21/2023 08:18:00 Past Encounters Encounter ID Performer Location Encounter Start Date Encounter Closed Date Diagnosis/Indication Diagnosis SNOMED-CT Code Diagnosis ICD10 Code Diagnosis IMO Codes Diagnosis Note [id number] Taj Andrews [facility] [address],[place] [address] 09/18/2025 09:51:36 09/18/2025 11:06:12 Pre-surgery evaluation 542930371 Z01.818 Per the ACC cardiac risk stratifica tion (revised) this patient is deemded a low risk for the proposed cataract OS surgery . He understand s to take his usual medication sprior to surgery (except the tamsulosin ) . Depression screening 171 614459 Z13.31 neg Health Concerns Section Related Observation LastModified by Organization Detai ls LastModified Time None Recorded Concern Status LastModified by Organization Details LastModified Time None Recorded Payers Encounter Date Sequence Insurance Name Policy Number Policy Connor Covered Member ID Connor Member ID Guarantor Name 09/18/2025 1 [facility] [id number] [facility] [employer] [id number] Gaurav Jack Notes Date Note Type Note Provider Name [...] ear last weeknow feels much better Taj Andrews, DO [address], [place], [address], [facility] 09/18/2025 10:30:09
== END 2025-11-10 13:41 | disposition home or self-care (01) ==
LOC: HO.MANLNP 13:40
PROVIDERS: Visit Provider Internal Medicine
DX: Z12.11 Encounter for screening for malignant neoplasm of colon (principal); R53.82 Chronic fatigue, unspecified
CPT/HCPCS: 82274